=== PATIENT | female | born 1945 | race Hispanic/Latino ===

== ENCOUNTER 2016-07-27 09:12 | Day surgery (SDC) | payer MEDICARE ==
[2016-07-20 11:48] VITALS: BMI 22.4
[2016-07-27] MEDS ORDERED: Propofol 10 mg/ml Inj (20 ML) ONE (09:46)
[2016-07-27 09:58] LABS: HEMATOCRIT 43.3 % (36.0-48.0); MEAN CELL VOLUME 79.6 fL (80.0-105.0); MEAN CORPUSCULAR HEMOGLOBIN 25.9 pg (25.0-35.0); MEAN CORPUSCULAR HGB CONC 32.6 g/dl (31.0-37.0); PLATELET COUNT 210 10^3/uL (120.0-450.0); RED CELL DISTRIBUTION WIDTH 18.2 % (11.5-14.5); WHITE BLOOD COUNT 7.2 10^3/ul (4.5-11.0)
[2016-07-27 10:06] LABS: ALB/GLOB RATIO 1.5 (1.1-1.8); ALKALINE PHOSPHATASE 85 U/L (38-133); ALT/SGPT 26 U/L (7-56); AST/SGOT 29 U/L (15-39); BILIRUBIN,TOTAL 1.1 mg/dL (0.2-1.3); BLOOD UREA NITROGEN 16 mg/dL (7-21); CALCIUM 9.4 mg/dL (8.4-10.5); CARBON DIOXIDE 27 mmol/L (21-33); CHLORIDE 105 mmol/L (98-107); GFR AFRICAN-AMERICAN > 60; GLUCOSE,RANDOM 84 mg/dL (70-110); POTASSIUM 4.6 mmol/L (3.6-5.0); SODIUM 142 mmol/L (132-148); TOTAL PROTEIN 7.5 g/dL (5.8-8.3)
[2016-07-27 10:09] LABS: INR 0.95 (0.93-1.08); PARTIAL THROMBOPLASTIN TIME 24.6 Seconds (23.7-30.8)
[2016-07-27] MEDS ORDERED: Esmolol 100 mg/10ml Inj IV ONE (10:28)
[2016-07-27] MEDS ORDERED: Phenylephrine 10 mg/ml Inj ONE (10:32)
[2016-07-27] MEDS ORDERED: ePHEDrine 50 mg/ml Inj ONE ×2 (10:34→10:36)
[2016-07-27] MEDS ORDERED: Lactated Ringer's 1,000 ML IV SCH (11:26)
[2016-07-27 13:40] VITALS: BP 158/95; PULSE 84; RESP 22; TEMP 98; O2SAT 98
--- NOTE | 2016-07-28 08:06 | CON ---
DATE: 07/27/2016 The patient is in the PACU, recovery room. REASON FOR CONSULTATION: Run of atrial fibrillation with hypotension during endoscopy. HISTORY OF PRESENT ILLNESS: The patient is a 71-year-old female who has a known case of hypertension , high cholesterol, osteoporosis, hypothyroidism, asthma, COPD, CA of the tonsil, who previously had a history of SVT, atrial fibrillation, paroxysmal, which had become stable with medication and the pa tient's Eliquis has been stopped for more than 1 year. The patient came for endoscopy procedure and during the procedure, the patient developed atrial fibrillation with rapid rate with hypotension. Sh e responded to therapy. All the procedures were completed and the patient is now in sinus rhythm. T he patient had an outpatient Holter monitor on 05/06/2016, which showed sinus rhythm. The patient is n ow awake and alert and denies any chest pain, shortness of breath or palpitation. PAST MEDICAL HISTORY: Positive for appendectomy, cholecystectomy, hypertension, high cholesterol, os teoporosis, hypothyroidism, asthma, COPD, and recently the patient found to have cancer of the tonsil , for which she has been getting therapy. PERSONAL HISTORY: Used to smoke 2-3 packs a day, but stopped 16 years ago. No drinking. ALLERGIES: The patient denies any allergies. HOME MEDICATIONS: The patient was on Cardizem 240 once a day. Also the patient was getting DuoNeb h and nebulizer therapy, levothyroxine 50 mcg p.o. daily, Lipitor 40 mg p.o. daily, Protonix 40 daily m g daily, Spiriva 1 inhaler INH q.a.m. and Symbicort 2 inhaler INH q.a.m. REVIEW OF SYSTEMS: All the systems were reviewed; positives mentioned in the history, others were ne gative. PHYSICAL EXAMINATION: VITAL SIGNS: Blood pressure 120/80, respiration 18, the patient is afebrile, pulse is about 76 per m inute. HEENT: Head is normocephalic. Eyes: Pupils normal. Conjunctivae normal. Nose and throat normal. NECK: JVP low. Carotid equal. THORAX: AP diameter normal. LUNGS: Clear. CARDIOVASCULAR: S1, S2. ABDOMEN: Soft, nontender, no organomegaly. EXTREMITIES: No clubbing, no cyanosis. LABORATORY DATA: The patient did not have any labs or EKG. DIAGNOSES: On and off atrial fibrillation during the procedure with an episode of hypotension, hist ory of hypertension, high cholesterol, osteoporosis, hypothyroidism, asthma, chronic obstructive pulm onary disease, carcinoma of the tonsil, past history of supraventricular tachycardia and atrial fibri llation. PLAN: The patient clinically is now back to sinus rhythm and probably her was related to the p rocedure and anesthesia, so the patient will continue Diltiazem ER 240 mg once a day along with her o ther medication at home. She is going to follow in our office. We are going to repeat A Holter and monitor the patient and THE patient was told to start Ecotrin 81 mg daily, starting tomorrow and we w ill follow the patient closely. The patient also will be on Protonix 40 mg daily, levothyroxine 50 m cg daily and Lipitor 40 mg daily. She will have blood work including TSH and we will follow the kev ent. Stacia Smallwood MD cc: [id number] TT: 07/27/2016 20:03:48 Confirmation # [id number] Dictation # [id number] [email or web address]
== END 2016-07-27 13:32 | disposition home or self-care (01) ==
LOC: ENDO 09:12
PROVIDERS: ATTEND Internal Medicine
DX: K25.9 Gastric ulcer, unspecified as acute or chronic, without hemorrhage or perforation (principal); K44.9 Diaphragmatic hernia without obstruction or gangrene; K83.8 Other specified diseases of biliary tract; K86.89 Other specified diseases of pancreas; D12.3 Benign neoplasm of transverse colon; D12.5 Benign neoplasm of sigmoid colon; K64.8 Other hemorrhoids; K57.90 Diverticulosis of intestine, part unspecified, without perforation or abscess without bleeding; I48.91 Unspecified atrial fibrillation; I10 Essential (primary) hypertension; E78.00 Pure hypercholesterolemia, unspecified; E03.9 Hypothyroidism, unspecified; I95.9 Hypotension, unspecified; J44.9 Chronic obstructive pulmonary disease, unspecified; J45.909 Unspecified asthma, uncomplicated; M81.0 Age-related osteoporosis without current pathological fracture; C09.9 Malignant neoplasm of tonsil, unspecified; Z87.891 Personal history of nicotine dependence; K29.50 Unspecified chronic gastritis without bleeding; Y84.8 Other medical procedures as the cause of abnormal reaction of the patient, or of later complication, without mention of misadventure at the time of the procedure; D50.9 Iron deficiency anemia, unspecified; R68.81 Early satiety; K21.9 Gastro-esophageal reflux disease without esophagitis; Z90.49 Acquired absence of other specified parts of digestive tract
CPT/HCPCS: 36415; 43259; 45380; 80053; 85027; 85610; 85730; 88305; 88312; 88342; J2001; J2370; J2704; J3010; J7040; J7120

== ENCOUNTER 2017-04-10 13:44 | Observation (INO) | payer MEDICARE ==
--- NOTE | 2017-04-10 14:47 | ED PDOC ---
Arrival/HPI - General Chief Complaint: High Blood Pressure Time Seen by Provider: 04/10/17 14:36 Historian: Patient - History of Present Illness Narrative History of Present Illness (Text): 04/10/17 14:49 71 year old female, whose past medical history includes A-fib,hypertension, diabetes, CAD and arthritis, presents to the Emergency department complaining of high blood pressure, headache, and dizziness prior to arrival. Patient informs reading at home when the symptoms emerged, bringing her to the Emergency department. Patient informs having a mini-stroke two months ago. Patient denies any chest pain, abdominal pain, shortness of breath, unilateral weakness, fever, chills, nausea, vomiting, diarrhea or any other complaints. Time/Duration: Prior to Arrival Symptom Course: Unchanged Activities at Onset: Light Context: Home Past Medical History - Provider Review Nursing Documentation Reviewed: Yes - Infectious Disease Hx of Infectious Diseases: None - Cardiac Hx Hypertension: Yes Hx Pacemaker: No - Neurological HX Cerebrovascular Accident: Yes (01/2017) Hx Paralysis: No Hx Transient Ischemic Attacks (TIA): Yes - Endocrine/Metabolic Other/Comment: thyroid cancer 3 years with radiation treatment=remission - Hematological/Oncological Hx Blood Transfusions: No Hx Blood Transfusion Reaction: No - Musculoskeletal/Rheumatological Hx Musculoskeletal Disorders: Yes - Psychiatric Hx Emotional Abuse: No Hx Physical Abuse: No Hx Substance Use: No - Surgical History Hx Appendectomy: Yes Hx Cholecystectomy: Yes - Anesthesia Hx Anesthesia: Yes Hx Anesthesia Reactions: No Hx Malignant Hyperthermia: No - Suicidal Assessment Feels Threatened In Home Enviroment: No Family/Social History - Physician Review Nursing Documentation Reviewed: Yes Family/Social History: No Known Family HX Smoking Status: Former Smoker Hx Alcohol Use: No Hx Substance Use: No Allergies/Home Meds Allergies/Adverse Reactions: Allergies No Known Allergies Allergy (Verified 04/10/17 20:09) CONFIRMED WITH PT THAT SHE DOES NOT HAVE AN ALLERGY TO OMEPRAZOLE NOTED IN MD HX Home Medications: Home Meds Medication Instructions Recorded Confirmed Atorvastatin Calcium [Lipitor] 40 mg PO DIN 01/25/15 04/10/17 Sertraline HCl 50 mg PO HS PRN 07/20/16 04/10/17 Albuterol Sulfate [Proair Hfa] 2 puff INH DAILY 04/10/17 04/10/17 Apixaban [Eliquis] 5 mg PO DAILY 04/10/17 04/10/17 Aspirin [Adult Low Dose Aspirin EC] 1 tab PO DAILY 04/10/17 04/10/17 Cyanocobalamin (Vitamin B-12) 1,000 mcg PO DAILY 04/10/17 04/10/17 [Vitamin B-12] Levalbuterol Tartrate 1 puff INH DAILY 04/10/17 04/10/17 [Levalbuterol Tartrate Hfa] Levothyroxine [Synthroid] 75 mcg PO DAILY 04/10/17 04/10/17 Metoprolol Tartrate [Lopressor] 50 mg PO BID 04/10/17 04/10/17 Ranitidine HCl [Sunmark Acid 150 mg PO BID 04/10/17 04/10/17 Tipple Greaser] hydrALAZINE [hydralazine 25 mg PO TID 04/10/17 04/10/17 Hydrochloride] Review of Systems - Physician Review All systems were reviewed & negative as marked: Yes - Review of Systems Constitutional: Normal. absent: Fevers Eyes: Normal ENT: Normal Respiratory: Normal. absent: SOB Cardiovascular: Normal, Other (High Blood Pressure ). absent: Chest Pain Gastrointestinal: Normal. absent: Abdominal Pain, Diarrhea, Nausea, Vomiting Genitourinary Female: Normal Musculoskeletal: Normal Skin: Normal Neurological: Headache, Dizziness Endocrine: Normal Hemo/Lymphatic: Normal Psychiatric: Normal Physical Exam Vital Signs Reviewed: Yes Vital Signs Temp Pulse Resp BP Pulse Ox 04/10/17 19:46 98.2 F 88 16 142/83 97 04/10/17 18:46 98.2 F 93 H 18 160/76 H 96 04/10/17 18:01 98.2 F 84 18 138/68 96 04/10/17 17:16 98.2 F 71 18 112/67 98 04/10/17 17:01 98.2 F 74 18 137/75 98 04/10/17 16:58 98.2 F 75 19 128/87 99 04/10/17 16:16 98.2 F 95 H 19 126/74 99 04/10/17 16:13 98.2 F 81 19 116/69 99 04/10/17 15:44 119 H 144/99 H 04/10/17 13:49 98.2 F 112 H 19 133/101 H 98 Temperature: Afebrile Blood Pressure: Hypertensive Pulse: Tachycardic Respiratory Rate: Normal Appearance: Positive for: Well-Appearing, Non-Toxic, Comfortable Pain Distress: None Mental Status: Positive for: Alert and Oriented X 3 - Systems Exam Head: Present: Atraumatic, Normocephalic Pupils: Present: PERRL Extroacular Muscles: Present: EOMI Conjunctiva: Present: Normal Mouth: Present: Moist Mucous Membranes Neck: Present: Normal Range of Motion Respiratory/Chest: Present: Clear to Auscultation, Good Air Exchange. No: Respiratory Distress, Accessory Muscle Use Cardiovascular: Present: Normal S1, S2, Irregular Rhythm (Irregularly irregular rhythm), Tachycardic. No: Murmurs Abdomen: Present: Normal Bowel Sounds. No: Tenderness, Distention, Peritoneal Signs Back: Present: Normal Inspection Upper Extremity: Present: Normal Inspection. No: Cyanosis, Edema Lower Extremity: Present: Normal Inspection. No: Edema Neurological: Present: GCS=15, CN II-XII Intact, Speech Normal Skin: Present: Warm, Dry, Normal Color. No: Rashes Psychiatric: Present: Alert, Oriented x 3, Normal Insight, Normal Concentration Medical Decision Making ED Course and Treatment: 04/10/17 14:55 Impression: 71 year old female presents to the Emergency department for high blood pressure/dizziness/weakness- found to be in afib with rvr. on eliquis baseline Plan: -- CT of head -- EKG -- Labs -- Chest X-ray -- Cardizem -- Urinalysis -- Reassess and disposition Progress Notes: 04/10/17 15:32 Chest X-ray reviewed by radiologist, shows no active disease. 04/10/17 18:15 CT of head reviewed by radiologist, shows no acute intracranial findings. 04/10/17 21:51 rate controled s/p cardizem. disucssed with hospitalist. accpets for admission - Lab Interpretations Lab Results: 04/10/17 15:30 04/10/17 15:30 Lab Results 04/10/17 17:00: Urine Color Yellow, Urine Appearance Clear, Urine pH 6.5, Ur Specific [place] 1.010, Urine Protein Negative, Urine Glucose (UA) Negative, Urine Ketones Negative, Urine Blood Negative, Urine Nitrate Negative, Urine Bilirubin Negative, Urine Urobilinogen 0.2, Ur Leukocyte Esterase Negative 02/03/18 15:30: Sodium 141, Potassium 5.1 H, Chloride 104, Carbon Dioxide 29, Anion Gap 14, BUN 16, Creatinine 0.7, Est GFR ( Amer) > 60, Est GFR (Non- Af Amer) > 60, Random Glucose 102, Calcium 10.1, Magnesium 2.1, Total Bilirubin 0.5, AST 29, ALT 29, Alkaline Phosphatase 69, Lactate Dehydrogenase 615, Total Creatine Kinase 75, Troponin I < 0.01, Total Protein 6.8, Albumin 4.1, Globulin 2.8, Albumin/Globulin Ratio 1.5 04/10/17 15:30: PT 9.8, INR 0.86 L, APTT 29.6 04/10/17 15:30: WBC 7.2, RBC 5.09, Hgb 14.0, Hct 44.2, MCV 86.8, MCH 27.5, MCHC 31.7, RDW 15.5 H, Plt Count 233, MPV 11.5 H, Gran % 73.3 H, Lymph % (Auto) 16.3 L, [place] % (Auto) 8.3 H, Eos % (Auto) 1.7, Baso % (Auto) 0.4, Gran # 5.28, Lymph # (Auto) 1.2, [place] # (Auto) 0.6, Eos # (Auto) 0.1, Baso # (Auto) 0.03 - RAD Interpretation Radiology Orders: 04/10/17 14:51 CHEST PORTABLE [RAD] Stat 04/10/17 14:52 HEAD W/O CONTRAST [CT] Stat Can Cutter: Radiologist - Medication Orders Current Medication Orders: Apixaban (Eliquis) 5 mg PO DAILY [facility] PRN Reason: Protocol Aspirin (Ecotrin) 81 mg PO DAILY [facility] Atorvastatin Calcium (Lipitor) 40 mg PO DIN [facility] Cyanocobalamin (Vitamin B12 1000 Mcg Tab) 1,000 mcg PO DAILY [facility] Famotidine (Pepcid) 40 mg PO HS [facility] Last Admin: 04/10/17 21:04 Dose: 40 mg Hydralazine HCl (Apresoline) 25 mg PO TID [facility] Levothyroxine Sodium (Synthroid) 75 mcg PO DAILY [facility] Metoprolol Tartrate (Lopressor) 50 mg PO BID [facility] Last Admin: 04/10/17 21:04 Dose: 50 mg MAR Pulse and Blood Pressure Document 04/10/17 21:04 SGG (Rec: 04/10/17 21:04 SG [id number]) Pulse Pulse Rate (60-90) 82 Blood Pressure Blood Pressure (100/60-150/90) 132/83 Non-Formulary Medication (Levalbuterol Tartrate [Levalbuterol Tartrate Hfa]) 1 puff INH DAILY [facility]URDO Sertraline HCl (Zoloft) 50 mg PO HS PRN PRN Reason: Insomnia Discontinued Medications Diltiazem HCl (Cardizem) 15 mg IVP STAT STA Stop: 04/10/17 14:52 Last Admin: 04/10/17 15:44 Dose: 15 mg IVP Administration Document 04/10/17 15:44 OCS (Rec: 04/10/17 15:44 [facility] [id number]) Charges for Administration # of IVP Administrations 1 MAR Pulse and Blood Pressure Document 04/10/17 15:44 OCS (Rec: 04/10/17 15:44 OCS [facility] [id number]) Pulse Pulse Rate (60-90) 119 Blood Pressure Blood Pressure (100/60-150/90) 144/99 - Scribe Statement The provider has reviewed the documentation as recorded by the Scribe Camden Moreno. All medical record entries made by the Scribe were at my direction and personally dictated by me. I have reviewed the chart and agree that the record accurately reflects my personal performance of the history, physical exam, medical decision making, and the department course for this patient. I have also personally directed, reviewed, and agree with the discharge instructions and disposition. Disposition/Present on Arrival - Present on Arrival Any Indicators Present on Arrival: No History of DVT/PE: No History of Uncontrolled Diabetes: No Urinary Catheter: No History of Decub. Ulcer: No History Surgical Site Infection Following: None - Disposition Have Diagnosis and Disposition been Completed?: Yes Diagnosis: Atrial fibrillation with RVR Disposition: HOSPITALIZED Disposition Time: 08:00 Condition: STABLE
--- NOTE | 2017-04-10 15:31 | RAD ---
HISTORY: cp COMPARISON: 12/10/2014 FINDINGS: LUNGS: No active pulmonary disease. PLEURA: No significant pleural effusion identified, no pneumothorax apparent. CARDIOVASCULAR: Normal. OSSEOUS STRUCTURES: No significant abnormalities. VISUALIZED UPPER ABDOMEN: Normal. OTHER FINDINGS: None. IMPRESSION: No active disease.
[2017-04-10 15:54] LABS: BASO # 0.03 K/mm3 (0.0-2.0); BASO % 0.4 % (0.0-3.0); EOS # 0.1 (0.0-0.7); EOS % 1.7 % (1.5-5.0); GRAN # 5.28 (1.4-6.5); GRAN % 73.3 % (50.0-68.0); LYMPH # 1.2 (1.2-3.4); LYMPH % 16.3 % (22.0-35.0); MEAN CELL VOLUME 86.8 fl (80.0-105.0); MEAN CORPUSCULAR HEMOGLOBIN 27.5 pg (25.0-35.0); MEAN CORPUSCULAR HGB CONC 31.7 g/dl (31.0-37.0); MEAN PLATELET VOLUME 11.5 fl (7.0-11.0); MONO # 0.6 (0.1-0.6); MONO % 8.3 % (1.0-6.0); RBC 5.09 10^6/uL (3.5-6.1); RED CELL DISTRIBUTION WIDTH 15.5 % (11.5-14.5); WHITE BLOOD COUNT 7.2 10^3/ul (4.5-11.0)
[2017-04-10 16:08] LABS: INR 0.86 (0.93-1.08); PARTIAL THROMBOPLASTIN TIME 29.6 Seconds (25.1-36.5); PROTHROMBIN TIME 9.8 SECONDS (9.4-12.5)
[2017-04-10 16:20] LABS: ALB/GLOB RATIO 1.5 (1.1-1.8); ALBUMIN 4.1 g/dL (3.0-4.8); ALT/SGPT 29 U/L (7-56); AST/SGOT 29 U/L (14-36); BLOOD UREA NITROGEN 16 mg/dL (7-21); CALCIUM 10.1 mg/dL (8.4-10.5); GFR AFRICAN-AMERICAN > 60; GFR NON-AFRICAN AMERICAN > 60; MAGNESIUM 2.1 mg/dL (1.7-2.2); TROPONIN I < 0.01 ng/mL
--- NOTE | 2017-04-10 16:55 | CT ---
PROCEDURE: CT HEAD WITHOUT CONTRAST. HISTORY: velasquez on eliquis COMPARISON: None available. TECHNIQUE: Axial computed tomography images were obtained through the head/brain without intravenous contrast. Radiation dose: Total exam DLP = 882 mGy-cm. This CT exam was performed using one or more of the following dose reduction techniques: Automated exposure control, adjustment of the mA and/or kV according to patient size, and/or use of iterative reconstruction technique. FINDINGS: HEMORRHAGE: No intracranial hemorrhage. BRAIN: No mass effect or edema. No atrophy or chronic microvascular ischemic changes. VENTRICLES: Unremarkable. No hydrocephalus. CALVARIUM: Unremarkable. PARANASAL SINUSES: Unremarkable as visualized. No significant inflammatory changes. MASTOID AIR CELLS: Unremarkable as visualized. No inflammatory changes. OTHER FINDINGS: None. IMPRESSION: No acute intracranial findings
[2017-04-10 17:14] LABS: PH,URINE 6.5 (4.7-8.0); URINE BILIRUBIN NEGATIVE (NEGATIVE); URINE BLOOD NEGATIVE (NEGATIVE); URINE GLUCOSE (UA) NEGATIVE (NEGATIVE); URINE LEUKOCYTE ESTERASE NEGATIVE Leu/uL (NEGATIVE); URINE NITRATE NEGATIVE (NEGATIVE); URINE PROTEIN NEGATIVE mg/dL (<30 mg/dL); URINE UROBILINOGEN 0.2 E.U./dL (<1 E.U./dL)
[2017-04-10 17:19] LABS: URINE APPEARANCE CLEAR (CLEAR); URINE COLOR YELLOW (YELLOW)
--- NOTE | 2017-04-10 19:21 | CP.PCM.HP ---
History of Present Illness - History of Present Illness History of Present Illness: HPI: Patient is a 71F with PMH of A Fib, HTN, HLD, CAD, DM, left sided TIA (2 months ago), hypothyroidism, asthma, emphysema, throat CA treated in past with chemo/rad, hiatal hernia, and arthritis, who presents to the ED complaining of fluctuating high blood pressure, headache, and weakness that started earlier today. Patient said the symptoms came on gradually and she monitored her BP throughout the day noting SBPs up to the 140s. Patient says she started getting a generalized headache over the top of her head that felt like someone was "squeezing her head". Patient also admits to associated dizziness, palpitations , and SOB, however she says she gets SOB often due to her asthma and emphysema. She also admits to a strange sensation on the sides of her neck that she has difficulty describing. Patient denies diaphoresis, changes in vision and speech , chest pain, abdominal pain, nausea, vomiting, diarrhea, constipation, changes in urination, pain/numbness/tingling/loss of function in her extremities, and sick contacts. CHRISTIANO VASc score: 7 In ED patient was given cardizem 15 mg IV and HR improved to ~100 bpm. EKG showed --. Head CT showed no intracranial findings. PMD: Dr. Thomson Cardio: Dr. Smallwood PMH: A Fib, HTN, HLD, CAD, DM, left sided TIA (2 months ago), hypothyroidism, asthma, emphysema, throat CA treated in past with chemo/rad, hiatal hernia, and arthritis Meds: * Proair 2 puffs QD * Xopenex 1 puff QD * Vitamin B12 1000 mcg PO QD * ASA 81 mg PO QD * Hydralazine 25 mg PO TID * Ranitidine 150 mg PO BID * Lopressor 50 mg PO BID * Eliquis 5 mg PO QD * Lipitor 40 mg PO HS * Synthroid 75 mcg PO QD * Sertraline 50 mg PO HS Allergies: NKDA PSH: Cholecystectomy, Appendectomy, Bunion of Right foot FH: [place] (father) SH: former smoker (smoked 3PPD x 40 years, quit 18 years ago), denies alcohol and elicit drug use Present on Admission - Present on Admission Any Indicators Present on Admission: No Review of Systems - Review of Systems All systems: reviewed and no additional remarkable complaints except (as per HPI ) Past Patient History - Infectious Disease Hx of Infectious Diseases: None - Past Social History Smoking Status: Former Smoker - CARDIAC Hx Hypertension: Yes Hx Pacemaker: No - NEUROLOGICAL HX Cerebrovascular Accident: Yes (01/2017) Hx Paralysis: No Hx Transient Ischemic Attacks (TIA): Yes - ENDOCRINE/METABOLIC Other/Comment: thyroid cancer 3 years with radiation treatment=remission - HEMATOLOGICAL/ONCOLOGICAL Hx Blood Transfusions: No Hx Blood Transfusion Reaction: No - MUSCULOSKELETAL/RHEUMATOLOGICAL Hx Musculoskeletal Disorders: Yes - PSYCHIATRIC Hx Emotional Abuse: No Hx Physical Abuse: No Hx Substance Use: No - SURGICAL HISTORY Hx Appendectomy: Yes Hx Cholecystectomy: Yes - ANESTHESIA Hx Anesthesia: Yes Hx Anesthesia Reactions: No Hx Malignant Hyperthermia: No Meds Allergies/Adverse Reactions: Allergies Allergy/AdvReac Type Severity Reaction Status Date / Time No Known Allergies Allergy Verified 04/10/17 14:00 Physical Exam - Constitutional Appears: Non-toxic, No Acute Distress - Head Exam Head Exam: ATRAUMATIC, NORMAL INSPECTION, NORMOCEPHALIC - Eye Exam Eye Exam: EOMI, Normal appearance, PERRL - ENT Exam ENT Exam: Mucous Membranes Moist - Neck Exam Neck exam: Negative for: Lymphadenopathy, Thyromegaly - Respiratory Exam Respiratory Exam: Clear to Auscultation Bilateral, NORMAL BREATHING PATTERN. absent: Accessory Muscle Use, Rales, Rhonchi, Wheezes, Respiratory Distress - Cardiovascular Exam Cardiovascular Exam: Tachycardia, Irregular Rhythm, +S1, +S2. absent: Diastolic murmur, JVD, Systolic Murmur - GI/Abdominal Exam GI & Abdominal Exam: Normal Bowel Sounds, Soft. absent: Distended, Tenderness - Extremities Exam Extremities exam: Positive for: normal inspection. Negative for: calf tenderness, pedal edema - Back Exam Back exam: NORMAL INSPECTION - Neurological Exam Neurological exam: Alert, CN II-XII Intact, Oriented x3 - Psychiatric Exam Psychiatric exam: Normal Affect, Normal Mood - Skin Skin Exam: Dry, Intact, Normal Color, Warm Results - Vital Signs Recent Vital Signs: Last Vital Signs Temp 98.2 F 04/10/17 17:16 Pulse 71 04/10/17 17:16 Resp 18 04/10/17 17:16 BP 112/67 04/10/17 17:16 Pulse Ox 98 04/10/17 17:16 - Labs Result Diagrams: 04/10/17 15:30 04/10/17 15:30 Assessment & Plan - Assessment and Plan (Free Text) Assessment: 71F with PMH of A Fib, HTN, HLD, CAD, DM, left sided TIA (2 months ago), hypothyroidism, asthma, emphysema, throat CA treated in past with chemo/rad, hiatal hernia, and arthritis, who presents to the ED with weakness, HTN, and headache, found to have A Fib. Plan: Atrial Fibrillation * Cardiology Consult (Dr. West) * Trop negative x1 * F/u trend * CXR: NAD * CT head: no intracranial findings * Consider echo * Consider carotid doppler for complaints of sensation in neck * Continue ASA, lopressor, eliquis Hypertension * Continue hydralazine 25 mg PO TID Hyperlipidemia * Continue lipitor 40 mg PO HS Hyperkalemia * Mildly elevated at 5.1 * Will monitor with AM labs Emphysema * Continue Proair and Xopenex * PFTs * ABG Hypothyroidism * Continue synthroid 75 mcg PO QD * TSH * T4 * Free T4 Depression * Continue sertraline 50 mg PO HS Prophylaxis * DVT: Eliquis * GI: Pepcid
[2017-04-10 20:20] VITALS: O2SAT 97
[2017-04-10 21:47] VITALS: BMI 23.2
[2017-04-10] MEDS ORDERED: Influenza Vaccine 60 mcg/0.5 mL SYR (4YR UP) IM ONE (21:47)
[2017-04-10] MEDS ORDERED: Pneumococcal 23-Valent Vaccine IM ONE (21:47)
[2017-04-11 04:07] LABS: BASO # 0.03 K/mm3 (0.0-2.0); BASO % 0.6 % (0.0-3.0); EOS # 0.1 (0.0-0.7); EOS % 2.8 % (1.5-5.0); GRAN # 3.09 (1.4-6.5); GRAN % 66.5 % (50.0-68.0); HEMOGLOBIN 14.4 g/dL (12.0-16.0); LYMPH # 0.9 (1.2-3.4); MEAN CELL VOLUME 86.9 fl (80.0-105.0); MEAN CORPUSCULAR HEMOGLOBIN 27.3 pg (25.0-35.0); MEAN CORPUSCULAR HGB CONC 31.4 g/dl (31.0-37.0); MEAN PLATELET VOLUME 11.2 fl (7.0-11.0); MONO # 0.5 (0.1-0.6); MONO % 10.1 % (1.0-6.0); RBC 5.27 10^6/uL (3.5-6.1); RED CELL DISTRIBUTION WIDTH 15.6 % (11.5-14.5); WHITE BLOOD COUNT 4.7 10^3/ul (4.5-11.0)
[2017-04-11 04:25] LABS: ALB/GLOB RATIO 1.4 (1.1-1.8); ALBUMIN 3.8 g/dL (3.0-4.8); ALT/SGPT 28 U/L (7-56); AST/SGOT 25 U/L (14-36); BLOOD UREA NITROGEN 12 mg/dL (7-21); CALCIUM 9.6 mg/dL (8.4-10.5); GFR AFRICAN-AMERICAN > 60; GFR NON-AFRICAN AMERICAN > 60
[2017-04-11 04:36] LABS: TROPONIN I < 0.01 ng/mL
[2017-04-11 04:53] LABS: FREE T4 0.88 ng/dL (0.78-2.19); T4 9.6 ug/dL (5.5-11.0)
[2017-04-11] MEDS ORDERED: Levothyroxine 75 MCG TAB PO SCH (10:00)
[2017-04-11] MEDS ORDERED: LEVALBUTEROL TARTRATE INH SCH (10:00)
[2017-04-11] MEDS ORDERED: Albuterol 0.5% Inhal Sol (2.5 mg/0.5 ml) UD IH SCH (10:00)
--- NOTE | 2017-04-11 11:56 | CARD ---
APPROVED REPORT EKG Measurement Heart [id number] <Conclusion> Atrial fibrillation with rapid ventricular response Abnormal ECG
[2017-04-11 12:00] VITALS: BP 120/70; PULSE 68
--- NOTE | 2017-04-11 12:54 | CP.PCM.DIS ---
<Milady Acosta - Last Filed: 04/11/17 12:41> Provider - Provider Date of Admission: 04/10/17 17:55 Attending physician: Cintia Rosen MD Primary care physician: Zari Thomson MD Consults: Dr. Smallwood Time Spent in preparation of Discharge (in minutes): 35 Hospital Course - Lab Results Lab Results: Most Recent Lab Values WBC 4.7 10^3/ul (4.5-11.0) D 04/11/17 04:00 RBC 5.27 10^6/uL (3.5-6.1) 04/11/17 04:00 Hgb 14.4 g/dL (12.0-16.0) 04/11/17 04:00 Hct 45.8 % (36.0-48.0) 04/11/17 04:00 MCV 86.9 fl (80.0-105.0) 04/11/17 04:00 MCH 27.3 pg (25.0-35.0) 04/11/17 04:00 MCHC 31.4 g/dl (31.0-37.0) 04/11/17 04:00 RDW 15.6 % (11.5-14.5) H 04/11/17 04:00 Plt Count 229 10^3/uL (120.0-450.0) 04/11/17 04:00 MPV 11.2 fl (7.0-11.0) H 04/11/17 04:00 Gran % 66.5 % (50.0-68.0) 04/11/17 04:00 Lymph % (Auto) 20.0 % (22.0-35.0) L 04/11/17 04:00 [place] % (Auto) 10.1 % (1.0-6.0) H 04/11/17 04:00 Eos % (Auto) 2.8 % (1.5-5.0) 04/11/17 04:00 Baso % (Auto) 0.6 % (0.0-3.0) 04/11/17 04:00 Gran # 3.09 (1.4-6.5) 04/11/17 04:00 Lymph # (Auto) 0.9 (1.2-3.4) L 04/11/17 04:00 [place] # (Auto) 0.5 (0.1-0.6) 04/11/17 04:00 Eos # (Auto) 0.1 (0.0-0.7) 04/11/17 04:00 Baso # (Auto) 0.03 K/mm3 (0.0-2.0) 04/11/17 04:00 PT 9.8 SECONDS (9.4-12.5) 04/10/17 15:30 INR 0.86 (0.93-1.08) L 04/10/17 15:30 APTT 29.6 Seconds (25.1-36.5) 04/10/17 15:30 Sodium 143 mmol/L (132-148) 04/11/17 04:00 Potassium 4.2 mmol/L (3.6-5.0) 04/11/17 04:00 Chloride 104 mmol/L (98-107) 04/11/17 04:00 Carbon Dioxide 30 mmol/L (21-33) 04/11/17 04:00 Anion Gap 13 (10-20) 04/11/17 04:00 BUN 12 mg/dL (7-21) 04/11/17 04:00 Creatinine 0.7 mg/dl (0.7-1.2) 04/11/17 04:00 Est GFR ( Amer) > 60 04/11/17 04:00 Est GFR (Non-Af Amer) > 60 04/11/17 04:00 Random Glucose 97 mg/dL (70-110) 04/11/17 04:00 Calcium 9.6 mg/dL (8.4-10.5) 04/11/17 04:00 Magnesium 2.0 mg/dL (1.7-2.2) 04/11/17 04:00 Total Bilirubin 0.7 mg/dL (0.2-1.3) 04/11/17 04:00 AST 25 U/L (14-36) 04/11/17 04:00 ALT 28 U/L (7-56) 04/11/17 04:00 Alkaline Phosphatase 67 U/L (38-126) 04/11/17 04:00 Lactate Dehydrogenase 615 U/L (333-699) 04/10/17 15:30 Total Creatine Kinase 75 U/L (35-230) 04/10/17 15:30 Troponin I < 0.01 ng/mL 04/11/17 04:00 Total Protein 6.5 g/dL (5.8-8.3) 04/11/17 04:00 Albumin 3.8 g/dL (3.0-4.8) 04/11/17 04:00 Globulin 2.7 gm/dL 04/11/17 04:00 Albumin/Globulin Ratio 1.4 (1.1-1.8) 04/11/17 04:00 Free T4 0.88 ng/dL (0.78-2.19) 04/11/17 04:00 Thyroxine (T4) 9.6 ug/dL (5.5-11.0) 04/11/17 04:00 TSH 3rd Generation 19.00 mIU/mL (0.46-4.68) H 04/11/17 04:00 Urine Color Yellow (YELLOW) 04/10/17 17:00 Urine Appearance Clear (CLEAR) 04/10/17 17:00 Urine pH 6.5 (4.7-8.0) 04/10/17 17:00 Ur Specific [place] 1.010 (1.005-1.035) 04/10/17 17:00 Urine Protein Negative mg/dL (<30 mg/dL) 04/10/17 17:00 Urine Glucose (UA) Negative mg/dL (NEGATIVE) 04/10/17 17:00 Urine Ketones Negative mg/dL (NEGATIVE) 04/10/17 17:00 Urine Blood Negative (NEGATIVE) 04/10/17 17:00 Urine Nitrate Negative (NEGATIVE) 04/10/17 17:00 Urine Bilirubin Negative (NEGATIVE) 04/10/17 17:00 Urine Urobilinogen 0.2 E.U./dL (<1 E.U./dL) 04/10/17 17:00 Ur Leukocyte Esterase Negative Shayan/uL (NEGATIVE) 04/10/17 17:00 - Hospital Course Hospital Course: Upon admission: Patient is a 71F with PMH of A Fib, HTN, HLD, CAD, DM, left sided TIA (2 months ago), hypothyroidism, asthma, emphysema, throat CA treated in past with chemo/ rad, hiatal hernia, and arthritis, who presents to the ED complaining of fluctuating high blood pressure, headache, and weakness that started earlier today. Patient said the symptoms came on gradually and she monitored her BP throughout the day noting SBPs up to the 140s. Patient says she started getting a generalized headache over the top of her head that felt like someone was "squeezing her head". Patient also admits to associated dizziness, palpitations , and SOB, however she says she gets SOB often due to her asthma and emphysema. She also admits to a strange sensation on the sides of her neck that she has difficulty describing. Patient denies diaphoresis, changes in vision and speech , chest pain, abdominal pain, nausea, vomiting, diarrhea, constipation, changes in urination, pain/numbness/tingling/loss of function in her extremities, and sick contacts. CHRISTIANO VASc score: 7 In ED patient was given cardizem 15 mg IV and HR improved to ~100 bpm. EKG showed --. Head CT showed no intracranial findings. Hospital course: Patient was admitted for AFib. Cardiology Consulted (Dr. West, covered by Dr. Mack). Troponins ordered and negative x3. CXR showed no acute disease and CT head showed no intracranial findings. Patient was continued on home meds (ASA, lopressor, eliquis). Patient was also started on diltiazem 120 mg PO daily. Hydralazine 25 mg PO TID was continued for patient's HTN but we instructed her to stop after discharge since it could be worsening her AFib. Patient's synthroid was increase to 125 mcg to better control her hypothyroidism since TSH was elevated to 19. Lipitor 40 mg PO HS was continued for patient's HLD. Proair and Xopenex were continued for emphysema. Sertraline 50 mg PO HS was continued for patient's history of depression. Upon discharge: Patient was discharged with the following instructions: Please fill and take the follow prescriptions: Cardizem 120 mg by mouth daily Levothyroxine 125 mcg by mouth daily (increased dose of home medication) Please discontinue the following medications: Hydralazine 25 mg 3x daily Please note that this is a summary of events. For more details, please see complete medical record. Discharge Exam - Head Exam Head Exam: ATRAUMATIC, NORMAL INSPECTION, NORMOCEPHALIC - Eye Exam Eye Exam: EOMI, Normal appearance, PERRL - ENT Exam ENT Exam: Mucous Membranes Moist - Respiratory Exam Respiratory Exam: Clear to PA & Lateral, NORMAL BREATHING PATTERN, UNREMARKABLE - Cardiovascular Exam Cardiovascular Exam: RRR, +S1, +S2 - GI/Abdominal Exam GI & Abdominal Exam: Normal Bowel Sounds, Unremarkable - Neurological Exam Neurological exam: Alert, Oriented x3 - Psychiatric Exam Psychiatric exam: Normal Affect, Normal Mood - Skin Skin Exam: Dry, Intact, Normal Color, Warm Discharge Plan - Discharge Medications Prescriptions: diltiaZEM CD [Cardizem CD] 120 mg PO DAILY #30 cap Levothyroxine [Synthroid] 125 mcg PO 0600 #30 tab - Follow Up Plan Condition: STABLE Disposition: HOME/ ROUTINE Additional Instructions: Please follow up with your PCP and crossing tender within one week of discharge. Please fill and take the follow prescriptions: Cardizem 120 mg by mouth daily Levothyroxine 125 mcg by mouth daily (increased dose of home medication) Please discontinue the following medications: Hydralazine 25 mg 3x daily Referrals: Zari Valenzuela MD [Primary Care Provider] - Stacia Smallwood MD [Staff Provider] - <Cintia Rosen - Last Filed: 04/11/17 13:16> Provider - Provider Date of Admission: 04/10/17 17:55 Attending physician: Cintia Rosen MD Primary care physician: Zari Thomson MD Hospital Course - Lab Results Lab Results: Most Recent Lab Values WBC 4.7 10^3/ul (4.5-11.0) D 04/11/17 04:00 RBC 5.27 10^6/uL (3.5-6.1) 04/11/17 04:00 Hgb 14.4 g/dL (12.0-16.0) 04/11/17 04:00 Hct 45.8 % (36.0-48.0) 04/11/17 04:00 MCV 86.9 fl (80.0-105.0) 04/11/17 04:00 MCH 27.3 pg (25.0-35.0) 04/11/17 04:00 MCHC 31.4 g/dl (31.0-37.0) 04/11/17 04:00 RDW 15.6 % (11.5-14.5) H 04/11/17 04:00 Plt Count 229 10^3/uL (120.0-450.0) 04/11/17 04:00 MPV 11.2 fl (7.0-11.0) H 04/11/17 04:00 Gran % 66.5 % (50.0-68.0) 04/11/17 04:00 Lymph % (Auto) 20.0 % (22.0-35.0) L 04/11/17 04:00 [place] % (Auto) 10.1 % (1.0-6.0) H 04/11/17 04:00 Eos % (Auto) 2.8 % (1.5-5.0) 04/11/17 04:00 Baso % (Auto) 0.6 % (0.0-3.0) 04/11/17 04:00 Gran # 3.09 (1.4-6.5) 04/11/17 04:00 Lymph # (Auto) 0.9 (1.2-3.4) L 04/11/17 04:00 [place] # (Auto) 0.5 (0.1-0.6) 04/11/17 04:00 Eos # (Auto) 0.1 (0.0-0.7) 04/11/17 04:00 Baso # (Auto) 0.03 K/mm3 (0.0-2.0) 04/11/17 04:00 PT 9.8 SECONDS (9.4-12.5) 04/10/17 15:30 INR 0.86 (0.93-1.08) L 04/10/17 15:30 APTT 29.6 Seconds (25.1-36.5) 04/10/17 15:30 Sodium 143 mmol/L (132-148) 04/11/17 04:00 Potassium 4.2 mmol/L (3.6-5.0) 04/11/17 04:00 Chloride 104 mmol/L (98-107) 04/11/17 04:00 Carbon Dioxide 30 mmol/L (21-33) 04/11/17 04:00 Anion Gap 13 (10-20) 04/11/17 04:00 BUN 12 mg/dL (7-21) 04/11/17 04:00 Creatinine 0.7 mg/dl (0.7-1.2) 04/11/17 04:00 Est GFR ( Amer) > 60 04/11/17 04:00 Est GFR (Non-Af Amer) > 60 04/11/17 04:00 Random Glucose 97 mg/dL (70-110) 04/11/17 04:00 Calcium 9.6 mg/dL (8.4-10.5) 04/11/17 04:00 Magnesium 2.0 mg/dL (1.7-2.2) 04/11/17 04:00 Total Bilirubin 0.7 mg/dL (0.2-1.3) 04/11/17 04:00 AST 25 U/L (14-36) 04/11/17 04:00 ALT 28 U/L (7-56) 04/11/17 04:00 Alkaline Phosphatase 67 U/L (38-126) 04/11/17 04:00 Lactate Dehydrogenase 615 U/L (333-699) 04/10/17 15:30 Total Creatine Kinase 75 U/L (35-230) 04/10/17 15:30 Troponin I < 0.01 ng/mL 04/11/17 04:00 Total Protein 6.5 g/dL (5.8-8.3) 04/11/17 04:00 Albumin 3.8 g/dL (3.0-4.8) 04/11/17 04:00 Globulin 2.7 gm/dL 04/11/17 04:00 Albumin/Globulin Ratio 1.4 (1.1-1.8) 04/11/17 04:00 Free T4 0.88 ng/dL (0.78-2.19) 04/11/17 04:00 Thyroxine (T4) 9.6 ug/dL (5.5-11.0) 04/11/17 04:00 TSH 3rd Generation 19.00 mIU/mL (0.46-4.68) H 04/11/17 04:00 Urine Color Yellow (YELLOW) 04/10/17 17:00 Urine Appearance Clear (CLEAR) 04/10/17 17:00 Urine pH 6.5 (4.7-8.0) 04/10/17 17:00 Ur Specific [place] 1.010 (1.005-1.035) 04/10/17 17:00 Urine Protein Negative mg/dL (<30 mg/dL) 04/10/17 17:00 Urine Glucose (UA) Negative mg/dL (NEGATIVE) 04/10/17 17:00 Urine Ketones Negative mg/dL (NEGATIVE) 04/10/17 17:00 Urine Blood Negative (NEGATIVE) 04/10/17 17:00 Urine Nitrate Negative (NEGATIVE) 04/10/17 17:00 Urine Bilirubin Negative (NEGATIVE) 04/10/17 17:00 Urine Urobilinogen 0.2 E.U./dL (<1 E.U./dL) 04/10/17 17:00 Ur Leukocyte Esterase Negative Shayan/uL (NEGATIVE) 04/10/17 17:00 Attending/Attestation - Attestation I have personally seen and examined this patient.: Yes I have fully participated in the care of the patient.: Yes I have reviewed all pertinent clinical information, including history, physical exam and plan: Yes Notes (Text): 04/11/17 13:11 71 year old female with past medical history of atrial fibrillation and hypothyroidism who presented with complaint of palpitations. She was admitted with afib with rvr. She was seen by cardiology and her medications were adjusted. She was started on cardizem cd and discontinued hydralazine. Her TSH was elevated and her synthroid dose was increased. Overall her symptoms improved. She is discharged home to follow up her pmd and crossing tender. Recommended to repeat TFTs in 4-6 weeks. Cintia Rosen MD Hospitalist.
[2017-04-11 12:56] VITALS: RESP 18; TEMP 98
[2017-04-12] MEDS ORDERED: Levothyroxine 125 MCG TAB PO SCH (06:00)
--- NOTE | 2017-04-12 08:45 | CON ---
DATE: 04/11/2017 REASON FOR CONSULTATION: AFib with rapid ventricular rate. BRIEF CLINICAL HISTORY: This is a 71-year-old female with past medical history significant for hypertension, hyperlipidemia, coronary artery disease, diabetes, TIA, hypothyroidism, asthma, emphysema, throat cancer - treated in past with chemo and radiation, hiatal hernia, came in with heart rate found up and down with blood pressure, admitted to the emergency room, found to be in AFib with rapid ventricular rate. The patient has a history of chronic atrial fibrillation, now rate is well controlled. Denies any chest pain, shortness of breath or any palpitation, wanted to go home. REVIEW OF SYSTEMS: As per HPI. PAST MEDICAL HISTORY: Significant for chronic atrial fibrillation, hypertension, hyperlipidemia, diabetes, history of TIA, CVA, history of throat cancer - treated with radiation and chemo, history of asthma, history of hypothyroidism, history of COPD, history of arthritis. CURRENT MEDICATIONS: The patient is taking ProAir, Xopenex, B12, aspirin, hydralazine, loratadine, Lopressor, Eliquis, Lipitor, Synthroid, as well as sertraline 50 mg daily. ALLERGIES: NO KNOWN DRUG ALLERGY. PAST SURGICAL HISTORY: Significant for cholecystectomy, appendectomy, bunion of the right foot removed. PAST FAMILY HISTORY: Significant for coronary artery disease. Father with LA. PHYSICAL EXAMINATION: VITAL SIGNS: Temperature afebrile, heart rate 60, blood pressure 120/70. HEENT: PERRLA. Extraocular muscles intact. NECK: Supple. No carotid bruits. No thyromegaly. CHEST: Clear to auscultation. HEART: S1 and S2, regular. ABDOMEN: Soft. EXTREMITIES: Clubbing and cyanosis negative. LABORATORY DATA: Blood work up as follows, WBC 4.3, hemoglobin 14.4, hematocrit of 45.8, and platelet count of 229. Chemistry showed sodium 140, potassium 4.2, chloride 104, carbon dioxide 30, anion gap of 13, BUN 12, creatinine 0.7. TSH 19. IMPRESSION AND PLAN: Severe hypothyroidism; the patient was maintained on 75 mcg, but TSH is severely elevated. Atrial fibrillation, chronic, with rapid ventricular rate; and at this time admitted with rapid ventricular rate. Troponin was negative. No evidence of acute myocardial infarction. History of throat cancer, history of hypertension, hyperlipidemia, and diabetes. The patient had stress test done that was essentially negative, being followed by Dr. Smallwood's recommendation. The patient is on hydralazine. We will change the medication. We will start Cardizem CD 120 mg daily, and we will give 60 mg of Cardizem as a stat dose now. Continue Eliquis 5 mg twice. Continue metoprolol 50 b.i.d. Increase levothyroxine from 75 to 125, because of TSH of 19 - severely hypothyroid. Follow with Dr. Smallwood and have an echo and a stress test as outpatient. Discussed with resident. We will follow with you. Thank you, Dr. Rosen, for providing us the opportunity in taking care of . Stacia Mack MD
[2017-04-12] MEDS ORDERED: diltiaZEM 120 mg/24 Hours CD Cap PO SCH (10:00)
--- NOTE | 2017-04-12 14:44 | CARD ---
APPROVED REPORT EKG Measurement Heart [id number] <Conclusion> Normal sinus rhythm Possible Inferior infarct, age undetermined Abnormal ECG
== END 2017-04-11 14:29 | disposition home or self-care (01) ==
LOC: ED 13:44 → ERH 17:55 → 3RSO 19:56
PROVIDERS: ADMIT Hospitalist; ATTEND Internal Medicine
DX: I48.2 Chronic atrial fibrillation (principal); I10 Essential (primary) hypertension; E89.0 Postprocedural hypothyroidism; I25.10 Atherosclerotic heart disease of native coronary artery without angina pectoris; E11.9 Type 2 diabetes mellitus without complications; E87.5 Hyperkalemia; F32.9 Major depressive disorder, single episode, unspecified; M19.90 Unspecified osteoarthritis, unspecified site; J43.9 Emphysema, unspecified; E78.5 Hyperlipidemia, unspecified; Z79.01 Long term (current) use of anticoagulants; Z79.82 Long term (current) use of aspirin; Z87.891 Personal history of nicotine dependence; Z86.73 Personal history of transient ischemic attack (TIA), and cerebral infarction without residual deficits; Z85.850 Personal history of malignant neoplasm of thyroid
CPT/HCPCS: 36415; 70450; 71045; 80053; 81003; 82550; 83615; 83735; 84439; 84443; 84484; 85025; 85610; 85730; 93005; 96374; 99285; G0378

== ENCOUNTER 2018-03-10 09:46 | Inpatient (IN) | payer MEDICARE ==
[2018-03-10] MEDS ORDERED: Albuterol-Ipratrop 3 mg / 0.5 (3 ml) UD ONE (10:00)
[2018-03-10] MEDS ORDERED: Albuterol-Ipratrop 3 mg / 0.5 (3 ml) UD IH STA (10:16)
--- NOTE | 2018-03-10 10:27 | ED PDOC ---
Arrival/HPI <Iglesia Cohen - Last Filed: 03/10/18 11:20> - General Historian: Patient - History of Present Illness Narrative History of Present Illness (Text): 03/10/18 10:18 72F with past medical history of Emphysema and AFib presents to the Emergency department with a 1 day hx of shortness of breath and dizziness. Symptoms began last night, pt treid using her home symbicort pump and nbulizer but got no relief. Symptoms worsen with any light activity. Pt reports this is the worst exacerbation she's had, however says its now improving with the STAT duonebs. She has never been intubated in the past. Pt Denies CP, fevers, chills, nausea, vomiting, LOC, sick contacts, recent illness Time/Duration: 24 hours Symptom Onset: Gradual Symptom Course: Improving Activities at Onset: Rest Context: Home <Doe Eric - Last Filed: 03/10/18 12:15> - General Chief Complaint: Shortness Of Breath Time Seen by Provider: 03/10/18 10:02 Past Medical History - Provider Review Nursing Documentation Reviewed: Yes - Infectious Disease Hx of Infectious Diseases: None - Cardiac Hx Cardiac Disorders: Yes Hx Hypertension: Yes - Pulmonary Hx Respiratory Disorders: Yes (smoked ppd x 40 yrs. quit.) Hx Asthma: Yes Hx Emphysema: Yes - Neurological HX Cerebrovascular Accident: Yes (01/2017) Hx Transient Ischemic Attacks (TIA): Yes - HEENT Hx HEENT Disorder: No - Renal Hx Renal Disorder: No - Endocrine/Metabolic Other/Comment: thyroid cancer 3 years with radiation treatment=remission - Hematological/Oncological Hx Blood Disorders: No - Integumentary Hx Dermatological Disorder: No - Musculoskeletal/Rheumatological Hx Musculoskeletal Disorders: Yes - Gastrointestinal Hx Gastrointestinal Disorders: Yes (HIATAL HERNIA,APPENDECTOMY) Hx Gall Bladder Disease: Yes (CHOLEYCSTECTOMY) - Genitourinary/Gynecological Hx Genitourinary Disorders: No - Psychiatric Hx Psychophysiologic Disorder: No Hx Substance Use: No - Surgical History Hx Appendectomy: Yes Hx Cholecystectomy: Yes - Anesthesia Hx Anesthesia: Yes Hx Anesthesia Reactions: No Hx Malignant Hyperthermia: No - Suicidal Assessment Feels Threatened In Home Enviroment: No <Doe Eric - Last Filed: 03/10/18 12:15> Family/Social History - Physician Review Nursing Documentation Reviewed: Yes Family/Social History: Unknown Family HX Smoking Status: Former Smoker Hx Alcohol Use: No Hx Substance Use: No <Doe Eric - Last Filed: 03/10/18 12:15> Allergies/Home Meds <Iglesia Cohen - Last Filed: 03/10/18 11:20> <Doe Eric - Last Filed: 03/10/18 12:15> Allergies/Adverse Reactions: Allergies No Known Allergies Allergy (Verified 04/10/17 20:09) CONFIRMED WITH PT THAT SHE DOES NOT HAVE AN ALLERGY TO OMEPRAZOLE NOTED IN MD ELVI Home Medications: Home Meds Medication Instructions Recorded Confirmed Atorvastatin Calcium [Lipitor] 40 mg PO DIN 01/25/15 03/10/18 Sertraline HCl 50 mg PO HS PRN 07/20/16 03/10/18 Apixaban [Eliquis] 5 mg PO DAILY 04/10/17 03/10/18 Aspirin [Adult Low Dose Aspirin EC] 1 tab PO DAILY 04/10/17 03/10/18 Cyanocobalamin (Vitamin B-12) 1,000 mcg PO DAILY 04/10/17 03/10/18 [Vitamin B-12] Levalbuterol Tartrate 1 puff INH DAILY 04/10/17 03/10/18 [Levalbuterol Tartrate Hfa] Metoprolol Tartrate [Lopressor] 50 mg PO BID 04/10/17 03/10/18 Ranitidine HCl [Acid Car Rider] 150 mg PO BID 04/10/17 03/10/18 Budesonide/Formoterol Fumarate 10.2 % IH PRN PRN 03/10/18 03/10/18 [Symbicort 160-4.5 Mcg Inhaler] Calcium Carbonate [Calcium] 600 mg PO DAILY 03/10/18 03/10/18 Cholecalciferol (Vitamin D3) 2,000 units PO DAILY 03/10/18 03/10/18 [Vitamin D3] Fish Oil/Dha/Epa [Fish Oil 1,200 1,200 mg PO DAILY 03/10/18 03/10/18 mg Fish Oil] Review of Systems - Physician Review All systems were reviewed & negative as marked: Yes - Review of Systems Constitutional: absent: Fevers, Night Sweats Eyes: absent: Vision Changes ENT: absent: Hearing Changes Respiratory: SOB, Cough, Wheezing. absent: Sputum Cardiovascular: absent: Chest Pain, Syncope Gastrointestinal: absent: Nausea, Vomiting, Hematemesis Genitourinary Female: absent: Dysuria Musculoskeletal: absent: Arthralgias, Myalgias Neurological: Dizziness. absent: Headache Endocrine: absent: Diaphoresis <Doe Eric - Last Filed: 03/10/18 12:15> Physical Exam Vital Signs Pulse Resp BP Pulse Ox 03/10/18 10:05 22 95 03/10/18 09:47 116 H 22 169/104 H 95 <Iglesia Cohen - Last Filed: 03/10/18 11:20> Vital Signs Reviewed: Yes Vital Signs Pulse Resp BP Pulse Ox 03/10/18 10:05 22 95 03/10/18 09:47 116 H 22 169/104 H 95 Temperature: Afebrile Blood Pressure: Hypertensive Pulse: Tachycardic Respiratory Rate: Tachypneic Appearance: Positive for: Uncomfortable Pain Distress: Moderate Mental Status: Positive for: Alert and Oriented X 3 - Systems Exam Head: Present: Atraumatic, Normocephalic Pupils: Present: PERRL Extroacular Muscles: Present: EOMI Conjunctiva: Present: Normal Mouth: Present: Moist Mucous Membranes Pharnyx: No: ERYTHEMA Neck: Present: Normal Range of Motion Respiratory/Chest: Present: Wheezes (bilateral upper and lower logan). No: Rales, Rhonchi Cardiovascular: Present: Irregular Rhythm, Tachycardic Abdomen: No: Tenderness, Distention Upper Extremity: Present: NORMAL PULSES, Capillary Refill < 2s. No: Cyanosis (no clubbing) Lower Extremity: Present: NORMAL PULSES Neurological: Present: CN II-XII Intact, Speech Normal Skin: Present: Normal Color Psychiatric: Present: Alert, Oriented x 3 <Doe Eric - Last Filed: 03/10/18 12:15> Medical Decision Making ED Course and Treatment: 03/10/18 11:17 Impression: 72 year old female presents to emergency department complaining of shortness of breath. In agreement with resident note which contains more details about the patient. Patient seen and evaluated with resident. Came up with plan and treatment together. Plan: -- EKG -- Labs -- Chest X-ray -- Duoneb -- Solu-Medrol - Lab Interpretations Lab Results: 03/10/18 10:24 03/10/18 10:24 Lab Results 03/10/18 10:24: Sodium 140, Potassium 4.5, Chloride 105, Carbon Dioxide 30, Anion Gap 10, BUN 18, Creatinine 0.5 L, Est GFR ( Amer) > 60, Est GFR (No n-Af Amer) > 60, Random Glucose 183 H, Calcium 9.1, Phosphorus 3.5, Magnesium 1.6 L, Total Bilirubin 1.0, AST 328 H D, ALT 281 H, Alkaline Phosphatase 240 H D , Total Protein 6.8, Albumin 4.0, Globulin 2.8, Albumin/Globulin Ratio 1.4 03/10/18 10:24: WBC 10.9, RBC 4.88, Hgb 12.6, Hct 41.1, MCV 84.2, MCH 25.8, MCHC 30.7 L, RDW 18.8 H, Plt Count 250, MPV 11.4 H, Gran % 88.6 H, Lymph % (Auto) 5.8 L, [place] % (Auto) 5.3, Eos % (Auto) 0.1 L, Baso % (Auto) 0.2, Gran # 9.66 H, Lymph # (Auto) 0.6 L, [place] # (Auto) 0.6, Eos # (Auto) 0.0, Baso # (Auto) 0.02 - RAD Interpretation Radiology Orders: 03/10/18 10:16 CHEST PORTABLE [RAD] Stat - Medication Orders Current Medication Orders: Discontinued Medications Albuterol/Ipratropium (Duoneb 3 Mg/0.5 Mg (3 Ml) Ud) 3 ml IH STAT STA Stop: 03/10/18 10:17 Last Admin: 03/10/18 10:26 Dose: Not Given Non-Admin Reason: already given Albuterol/Ipratropium (Duoneb 3 Mg/0.5 Mg (3 Ml) Ud) 3 ml IH Q15M ZURDO Stop: 03/10/18 11:01 Last Admin: 03/10/18 10:58 Dose: 3 ml Methylprednisolone (Solu-Medrol) 125 mg IVP STAT STA Stop: 03/10/18 10:17 Last Admin: 03/10/18 10:31 Dose: 125 mg IVP Administration Document 03/10/18 10:31 BB (Rec: 03/10/18 10:34 BB [id number]) Charges for Administration # of IVP Administrations 1 <Iglesia Cohen - Last Filed: 03/10/18 11:20> ED Course and Treatment: 03/10/18 10:34 #COPD Exacerbation -f/u CBC CMP Chest X-ray, EKG -Duonebs q15 x3 -Solumedrol 125 IVP -ReAssess in 1 hr - RAD Interpretation Radiology Orders: 03/10/18 10:16 CHEST PORTABLE [RAD] Stat - EKG Interpretation Interpreted by ED Physician: Yes Type: 12 lead EKG (afib rate 117) <Doe Eric - Last Filed: 03/10/18 12:15> - PA / FAMILY LAW PARALEGAL / Resident Statement MD/DO has reviewed & agrees with the documentation as recorded. MD/DO has examined the patient and agrees with the treatment plan. - Scribe Statement The provider has reviewed the documentation as recorded by the Tavaresibe Fannie balderas with [facility] All medical record entries made by the Tavaresibsaran were at my direction and personally dictated by me. I have reviewed the chart and agree that the record accurately reflects my personal performance of the history, physical exam, medical decision making, and the department course for this patient. I have also personally directed, reviewed, and agree with the discharge instructions and disposition. <VickiIglesia - Last Filed: 03/10/18 11:20> Disposition/Present on Arrival <VickiIglesia Modi - Last Filed: 03/10/18 11:20> - Present on Arrival Any Indicators Present on Arrival: No History of DVT/PE: No History of Uncontrolled Diabetes: No Urinary Catheter: No History of Decub. Ulcer: No History Surgical Site Infection Following: None - Disposition Have Diagnosis and Disposition been Completed?: Yes Disposition Time: 11:27 Patient Plan: Observation <Doe Eric - Last Filed: 03/10/18 12:15> - Disposition Diagnosis: COPD exacerbation Disposition: HOSPITALIZED Patient Problems: Current Active Problems Problem Status Onset COPD exacerbation Acute Condition: STABLE Forms: [employer] (Italian)
[2018-03-10] MEDS: Albuterol-Ipratrop 3 mg / 0.5 (3 ml) UD IH SCH ×3 (10:35→11:34)
[2018-03-10 10:54] LABS: BASO # 0.02 K/mm3 (0.0-2.0); BASO % 0.2 % (0.0-3.0); EOS % 0.1 % (1.5-5.0); GRAN # 9.66 (1.4-6.5); GRAN % 88.6 % (50.0-68.0); HEMOGLOBIN 12.6 g/dL (12.0-16.0); LYMPH # 0.6 (1.2-3.4); LYMPH % 5.8 % (22.0-35.0); MEAN CELL VOLUME 84.2 fl (80.0-105.0); MEAN CORPUSCULAR HEMOGLOBIN 25.8 pg (25.0-35.0); MEAN CORPUSCULAR HGB CONC 30.7 g/dl (31.0-37.0); MEAN PLATELET VOLUME 11.4 fl (7.0-11.0); MONO # 0.6 (0.1-0.6); MONO % 5.3 % (1.0-6.0); RBC 4.88 10^6/uL (3.5-6.1); RED CELL DISTRIBUTION WIDTH 18.8 % (11.5-14.5); WHITE BLOOD COUNT 10.9 10^3/uL (4.5-11.0)
[2018-03-10 10:56] LABS: ALB/GLOB RATIO 1.4 (1.1-1.8); ALT/SGPT 281 U/L (7-56); AST/SGOT 328 U/L (14-36); BLOOD UREA NITROGEN 18 mg/dL (7-21); CALCIUM 9.1 mg/dL (8.4-10.5); GFR NON-AFRICAN AMERICAN > 60
[2018-03-10] MEDS ORDERED: Levalbuterol 1.25 MG/3 ML Inhal Soln UD IH STA (11:24)
--- NOTE | 2018-03-10 11:29 | RAD ---
Date of service: 03/10/2018 HISTORY: emphysema exacerbation COMPARISON: 04/10/2017 FINDINGS: LUNGS: No active pulmonary disease. PLEURA: No significant pleural effusion identified, no pneumothorax apparent. CARDIOVASCULAR: No aortic atherosclerotic calcification present. Normal cardiac size. No pulmonary vascular congestion. OSSEOUS STRUCTURES: No significant abnormalities. VISUALIZED UPPER ABDOMEN: Normal. OTHER FINDINGS: None. IMPRESSION: No active disease.
[2018-03-10 12:55] VITALS: BMI 20.5
[2018-03-10] MEDS ORDERED: Non Formulary Medication (Budesonide/Formoterol Fumarate [Symbicort 160-4.5 Mcg Inhaler] 1 IH PRN (12:57)
[2018-03-10] MEDS ORDERED: Levalbuterol 0.63 MG/3 ML Inhal Soln UD IH PRN (13:04)
--- NOTE | 2018-03-10 13:09 | CP.PCM.HP ---
<Leti Wood - Last Filed: 03/10/18 15:10> History of Present Illness - History of Present Illness History of Present Illness: PGY-3 h&p for hospitalist service 72 female with PMH of COPD, CVA 2017, a. fib on eliquis, thyroid ca s/p chemo and radiation 3 yo presented to the Emergency department with shortness of breath and cough.She states that her SOB started late last night. She tried using her home symbicort pump and nebulizer but her breathing did not improve. Symptoms worsen with any light activity. Patient states that he breathing and cough improved after the steroids and breathing treatment in [facility] ED. Patient states that she has had productive cough with green brown sputum. She states that she took over the counter medication such as dayquil. She has never been intubated in the past. Pt Denies chest pain, fevers, chills, nausea, vomiting, and pain, urinary symptoms. She denies any sick contacts. 12 point ROS is negative except as stated PMH: COPD, CVA 2017, a. fib on eliquis, thyriod ca s/p chemo and radiation 3 yo PSH: Appendectomy, cholecystctomy social history: quit smoking 17 yo, former 1-2 ppd for 40 years, stopped alcohol use 1 yo, denies illicit drug use family history: denied allergy: NKDA Present on Admission - Present on Admission Any Indicators Present on Admission: No Review of Systems - Review of Systems All systems: reviewed and no additional remarkable complaints except Past Patient History - Infectious Disease Hx of Infectious Diseases: None - Past Social History Smoking Status: Former Smoker - CARDIAC Hx Cardiac Disorders: Yes Hx Hypertension: Yes - PULMONARY Hx Respiratory Disorders: Yes (smoked ppd x 40 yrs. quit.) Hx Asthma: Yes Hx Emphysema: Yes - NEUROLOGICAL HX Cerebrovascular Accident: Yes (01/2017) Hx Transient Ischemic Attacks (TIA): Yes - HEENT Hx HEENT Problems: No - RENAL Hx Chronic Kidney Disease: No - ENDOCRINE/METABOLIC Other/Comment: thyroid cancer 3 years with radiation treatment=remission - HEMATOLOGICAL/ONCOLOGICAL Hx Blood Disorders: No - INTEGUMENTARY Hx Dermatological Problems: No - MUSCULOSKELETAL/RHEUMATOLOGICAL Hx Musculoskeletal Disorders: Yes - GASTROINTESTINAL Hx Gastrointestinal Disorders: Yes (HIATAL HERNIA,APPENDECTOMY) Hx Gall Bladder Disease: Yes (CHOLEYCSTECTOMY) - GENITOURINARY/GYNECOLOGICAL Hx Genitourinary Disorders: No - PSYCHIATRIC Hx Psychophysiologic Disorder: No Hx Substance Use: No - SURGICAL HISTORY Hx Appendectomy: Yes Hx Cholecystectomy: Yes - ANESTHESIA Hx Anesthesia: Yes Hx Anesthesia Reactions: No Hx Malignant Hyperthermia: No Meds Allergies/Adverse Reactions: Allergies Allergy/AdvReac Type Severity Reaction Status Date / Time No Known Allergies Allergy Verified 04/10/17 20:09 Physical Exam - Constitutional Appears: No Acute Distress - Head Exam Head Exam: ATRAUMATIC, NORMAL INSPECTION, NORMOCEPHALIC - Eye Exam Eye Exam: EOMI, Normal appearance - ENT Exam ENT Exam: Mucous Membranes Moist - Respiratory Exam Respiratory Exam: Wheezes (all lung logan), NORMAL BREATHING PATTERN. absent: Accessory Muscle Use, Decreased Breath Sounds, Respiratory Distress Additional comments: cough - Cardiovascular Exam Cardiovascular Exam: Tachycardia, Irregular Rhythm. absent: Bradycardia, Diastolic murmur, REGULAR RHYTHM, Systolic Murmur - GI/Abdominal Exam GI & Abdominal Exam: Normal Bowel Sounds, Soft. absent: Distended, Firm, Guarding, Tenderness - Extremities Exam Extremities exam: Positive for: normal inspection. Negative for: calf t enderness, pedal edema, tenderness - Back Exam Back exam: NORMAL INSPECTION. absent: CVA tenderness (L), CVA tenderness (R), paraspinal tenderness - Neurological Exam Neurological exam: Alert, Oriented x3 - Psychiatric Exam Psychiatric exam: Normal Affect, Normal Mood - Skin Skin Exam: Dry, Intact, Normal Color, Warm Results - Vital Signs Recent Vital Signs: Last Vital Signs Temp Pulse 152 H 03/10/18 11:47 Resp 24 03/10/18 11:47 BP 168/99 H 03/10/18 11:47 Pulse Ox 95 03/10/18 11:47 - Labs Result Diagrams: 03/10/18 10:24 03/10/18 10:24 Labs: Laboratory Results - last 24 hr 03/10/18 03/10/18 10:24 10:24 WBC 10.9 RBC 4.88 Hgb 12.6 Hct 41.1 MCV 84.2 MCH 25.8 MCHC 30.7 L RDW 18.8 H Plt Count 250 MPV 11.4 H Gran % 88.6 H Lymph % (Auto) 5.8 L [place] % (Auto) 5.3 Eos % (Auto) 0.1 L Baso % (Auto) 0.2 Gran # 9.66 H Lymph # (Auto) 0.6 L [place] # (Auto) 0.6 Eos # (Auto) 0.0 Baso # (Auto) 0.02 Sodium 140 Potassium 4.5 Chloride 105 Carbon Dioxide 30 Anion Gap 10 BUN 18 Creatinine 0.5 L Est GFR ( Amer) > 60 Est GFR (Non-Af Amer) > 60 Random Glucose 183 H Calcium 9.1 Phosphorus 3.5 Magnesium 1.6 L Total Bilirubin 1.0 AST 328 H D ALT 281 H Alkaline Phosphatase 240 H D Total Protein 6.8 Albumin 4.0 Globulin 2.8 Albumin/Globulin Ratio 1.4 Assessment & Plan - Assessment and Plan (Free Text) Assessment: 72 female with PMH of COPD, CVA 2017, a. 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 fib - EKG in ED showed a. fib - continue home eliquis - continue home diltiazem 120mg - will hold metoprolol due to copd exacerbation - if needed will give lopressor IV PRN for tachy cardia greater then 120 DVT ppx- eliquis GI- pepcid case seen and discussed with Dr. Damian <Jose Damian - Last Filed: 03/10/18 15:35> Results - Vital Signs Recent Vital Signs: Last Vital Signs Temp Pulse 117 H 03/10/18 15:09 Resp 24 03/10/18 11:47 BP 121/61 03/10/18 15:09 Pulse Ox 95 03/10/18 11:47 - Labs Result Diagrams: 03/10/18 10:24 03/10/18 10:24 Labs: Laboratory Results - last 24 hr 03/10/18 03/10/18 03/10/18 10:24 10:24 14:00 WBC 10.9 RBC 4.88 Hgb 12.6 Hct 41.1 MCV 84.2 MCH 25.8 MCHC 30.7 L RDW 18.8 H Plt Count 250 MPV 11.4 H Gran % 88.6 H Lymph % (Auto) 5.8 L [place] % (Auto) 5.3 Eos % (Auto) 0.1 L Baso % (Auto) 0.2 Gran # 9.66 H Lymph # (Auto) 0.6 L [place] # (Auto) 0.6 Eos # (Auto) 0.0 Baso # (Auto) 0.02 Sodium 140 Potassium 4.5 Chloride 105 Carbon Dioxide 30 Anion Gap 10 BUN 18 Creatinine 0.5 L Est GFR ( Amer) > 60 Est GFR (Non-Af Amer) > 60 Random Glucose 183 H Calcium 9.1 Phosphorus 3.5 Magnesium 1.6 L Total Bilirubin 1.0 AST 328 H D ALT 281 H Alkaline Phosphatase 240 H D Total Protein 6.8 Albumin 4.0 Globulin 2.8 Albumin/Globulin Ratio 1.4 TSH 3rd Generation 5.19 H Attending/Attestation - Attestation I have personally seen and examined this patient.: Yes I have fully participated in the care of the patient.: Yes I have reviewed all pertinent clinical information: Yes Notes (Text): Patient seen and examined with the residents, agree with above. Presents with dyspnea attributed to acute exacerbation of her copd with possible underlying bronchitis nebs/steroids/advair equivalent. Started on Abx will evaluate for possible home O2
[2018-03-10] MEDS ORDERED: cefTRIAXone 500 MG in Sodium Chloride 0.9% 50 ML IVPB SCH (13:30)
[2018-03-10] MEDS ORDERED: cefTRIAXone 1 GM/100 ML BAG IVPB SCH (13:45)
[2018-03-10] MEDS: Metoprolol 1 mg/ml Inj ONE ×2 (15:00→18:14)
[2018-03-10] MEDS: Metoprolol 1 mg/ml Inj IVP ONE ×3 (15:09→15:14)
[2018-03-10 17:22] LABS: HEPATITIS B SURFACE AG Negative (NEGATIVE)
--- NOTE | 2018-03-10 17:25 | CARD ---
APPROVED REPORT Date of service: 03/10/2018 EKG Measurement Heart [id number] <Conclusion> Atrial fibrillation with rapid ventricular response Low voltage QRS ST abnormality, possible digitalis effect Abnormal ECG
[2018-03-10 17:27] LABS: HEPATITIS A IGM NEGATIVE (NEGATIVE); HEPATITIS B CORE AB NEGATIVE (NEGATIVE)
[2018-03-10 17:39] LABS: HEPATITIS C ANTIBODY NEGATIVE (NEGATIVE)
--- NOTE | 2018-03-10 17:53 | US ---
Date of service: 03/10/2018 HISTORY: transaminitis COMPARISON: None. TECHNIQUE: Sonographic evaluation of the right upper quadrant of the abdomen. FINDINGS: LIVER: Measures 14.3 cm in length. Hepatopedal blood flow. Fatty infiltration manifest ultrasonographically as increased echogenicity of the liver parenchyma. No mass. No intrahepatic bile duct dilatation. GALLBLADDER: Status post cholecystectomy. No abnormality is seen in the gallbladder fossa. COMMON BILE DUCT: Measures 13.3 mm. No stones. Dilated common bile duct consistent with prior cholecystectomy. Similar finding was identified on a prior CT scan of the abdomen pelvis from 12/29/2016. PANCREAS: Unremarkable as visualized. No mass. No ductal dilatation. RIGHT KIDNEY: Measures 4.0 x 10.1 cm in length. Normal echogenicity. No calculus, mass, or hydronephrosis. AORTA: No aneurysmal dilatation. IVC: Unremarkable. OTHER FINDINGS: None . IMPRESSION: No acute findings related to/ accounting for the clinical presentation. Additional benign and/or incidental findings described above. This includes dilated common bile duct. No significant interval change compared to the prior examination(s).
[2018-03-10] MEDS ORDERED: Metoprolol 1 mg/ml Inj IVP ONE (18:18)
[2018-03-10] MEDS: Azithromycin 500MG/NS 250ml 500 MG/250 ML BAG IVPB SCH (18:30)
[2018-03-10] MEDS: guaiFENesin DM 100 mg-10 mg/5 ml UD PO PRN (18:32)
[2018-03-10] MEDS ORDERED: Influenza Vaccine 60 mcg/0.5 mL SYR (4YR UP) IM ONE (19:27)
[2018-03-10] MEDS ORDERED: Pneumococcal 23-Valent Vaccine IM ONE (19:27)
[2018-03-10] MEDS: Budesonide 0.5 mg/2 ml Inhal Susp UD IH SCH (20:06)
[2018-03-10] MEDS: Arformoterol 15 mcg/2 ml Inh Sol IH SCH (20:06)
[2018-03-10] MEDS: Levalbuterol 0.63 MG/3 ML Inhal Soln UD IH SCH (20:06)
[2018-03-10] MEDS: MethylPREDNISolone 40 mg Vial IVP SCH (21:56)
[2018-03-11] MEDS: Levalbuterol 0.63 MG/3 ML Inhal Soln UD IH SCH ×5 (01:42→23:31)
[2018-03-11] MEDS: guaiFENesin DM 100 mg-10 mg/5 ml UD PO PRN ×4 (01:57→22:10)
[2018-03-11] MEDS: Levothyroxine 125 MCG TAB PO SCH (05:06)
[2018-03-11] MEDS ORDERED: Magnesium Sulfate 1 gm in D5W 1 GM/100 ML BAG IVPB ONE (05:56)
[2018-03-11 06:26] LABS: GRAN # 7.77 (1.4-6.5); GRAN % 94.5 % (50.0-68.0); HEMOGLOBIN 11.8 g/dL (12.0-16.0); LYMPH # 0.2 (1.2-3.4); LYMPH % 2.9 % (22.0-35.0); MEAN CELL VOLUME 82.9 fl (80.0-105.0); MEAN CORPUSCULAR HEMOGLOBIN 25.6 pg (25.0-35.0); MEAN CORPUSCULAR HGB CONC 30.9 g/dl (31.0-37.0); MEAN PLATELET VOLUME 11.2 fl (7.0-11.0); MONO # 0.2 (0.1-0.6); MONO % 2.6 % (1.0-6.0); PLATELET COUNT 251 10^3/uL (120.0-450.0); RBC 4.61 10^6/uL (3.5-6.1); RED CELL DISTRIBUTION WIDTH 18.8 % (11.5-14.5); WHITE BLOOD COUNT 8.2 10^3/uL (4.5-11.0)
[2018-03-11 07:18] LABS: ALB/GLOB RATIO 1.5 (1.1-1.8); ALBUMIN 4.2 g/dL (3.0-4.8); ALT/SGPT 200 U/L (7-56); AST/SGOT 131 U/L (14-36); BLOOD UREA NITROGEN 19 mg/dL (7-21); CALCIUM 9.3 mg/dL (8.4-10.5); GFR NON-AFRICAN AMERICAN > 60
--- NOTE | 2018-03-11 07:34 | CP.PCM.PN ---
<Marcelo Vidal L - Last Filed: 03/11/18 17:52> Subjective - Date & Time of Evaluation Date of Evaluation: 03/11/18 Time of Evaluation: 07:33 - Subjective Subjective: Resident Progress Note for Hospitalist Service Patient examined at bedside. Overnight patient had afib, was given carzdizem with resolution. This morning patient admits to intermittent palpitations, cough, and shortness of breath. States that her breathing is improved. Denies fevers, chills, chest pain, abdominal pain, diarrhea, dysuria. Objective - Vital Signs/Intake and Output Vital Signs (last 24 hours): Temp Pulse Resp BP Pulse Ox 98.1 F 133 H 20 136/88 97 03/11/18 06:00 03/11/18 06:59 03/11/18 06:00 03/11/18 06:00 03/11/18 06:00 Intake and Output: 03/11/18 03/11/18 06:59 18:59 Intake Total 120 Output Total 0 Balance 120 - Medications Medications: Current Medications Apixaban (Eliquis) 5 mg PO DAILY [facility]; Protocol Arformoterol Tartrate (Brovana) 15 mcg IH [id number] [facility] Last Admin: 03/10/18 20:06 Dose: 15 mcg Aspirin (Ecotrin) 81 mg PO DAILY [facility] Last Admin: 03/10/18 16:53 Dose: 81 mg Atorvastatin Calcium (Lipitor) 40 mg PO DIN [facility] Last Admin: 03/10/18 18:27 Dose: 40 mg Budesonide (Pulmicort Respules) 0.5 mg IH [id number] [facility] Last Admin: 03/10/18 20:06 Dose: 0.5 mg Diltiazem HCl (Cardizem Cd) 120 mg PO DAILY [facility] Famotidine (Pepcid) 20 mg PO BID [facility] Last Admin: 03/10/18 18:27 Dose: 20 mg Guaifenesin/Dextromethorphan (Robitussin Dm) 5 ml PO Q4H PRN PRN Reason: Cough Last Admin: 03/11/18 01:57 Dose: 5 ml Azithromycin (Zithromax 500mg In Ns) 500 mg in 250 mls @ 167 mls/hr IVPB DAILY [facility]; Protocol Last Admin: 03/10/18 18:30 Dose: 167 mls/hr Ceftriaxone Sodium (Rocephin 1 Gram Ivpb) 1 gm in 100 mls @ 100 mls/hr IVPB Q24H [facility] Last Admin: 03/10/18 18:40 Dose: 100 mls/hr Ibuprofen (Motrin Tab) 600 mg PO Q6H PRN PRN Reason: Pain, moderate (4-7) Last Admin: 03/10/18 18:27 Dose: 600 mg Levalbuterol HCl (Xopenex) 0.63 mg IH [id number] [facility] Last Admin: 03/11/18 01:42 Dose: 0.63 mg Levalbuterol HCl (Xopenex) 0.63 mg IH Q4 PRN PRN Reason: Shortness of Breath Levothyroxine Sodium (Synthroid) 125 mcg PO 0600 [facility] Last Admin: 03/11/18 05:06 Dose: 125 mcg Methylprednisolone (Solu-Medrol) 40 mg IVP Q12 [facility] Last Admin: 03/10/18 21:56 Dose: 40 mg Sertraline HCl (Zoloft) 50 mg PO HS PRN PRN Reason: Insomnia - Labs Labs: 03/11/18 06:00 03/11/18 06:00 - Additional Findings Additional findings: - Constitutional Appears: No Acute Distress - Head Exam Head Exam: ATRAUMATIC, NORMAL INSPECTION, NORMOCEPHALIC - Eye Exam Eye Exam: EOMI, Normal appearance - ENT Exam ENT Exam: Mucous Membranes Moist - Respiratory Exam Respiratory Exam: Wheezes (all lung logan), NORMAL BREATHING PATTERN. absent: Accessory Muscle Use, Decreased Breath Sounds, Respiratory Distress Additional comments: cough - Cardiovascular Exam Cardiovascular Exam: Tachycardia, Irregular Rhythm. absent: Bradycardia, Diastolic murmur, REGULAR RHYTHM, Systolic Murmur - GI/Abdominal Exam GI & Abdominal Exam: Normal Bowel Sounds, Soft. absent: Distended, Firm, Guarding, Tenderness - Extremities Exam Extremities exam: Positive for: normal inspection. Negative for: calf tenderness, pedal edema, tenderness - Back Exam Back exam: NORMAL INSPECTION. absent: CVA tenderness (L), CVA tenderness (R), paraspinal tenderness - Neurological Exam Neurological exam: Alert, Oriented x3 - Psychiatric Exam Psychiatric exam: Normal Affect, Normal Mood - Skin Skin Exam: Dry, Intact, Normal Color, Warm Assessment and Plan - Assessment and Plan (Free Text) Assessment: Patient is a 72 year old female with PMH of COPD, CVA 2017, afib on eliquis, thyroid ca s/p chemo and radiation presenting with COPD exacerbation and cough. 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 Rickie Vidal PGY-1 <Jose Damian - Last Filed: 03/11/18 18:01> Objective - Vital Signs/Intake and Output Vital Signs (last 24 hours): Temp Pulse Resp BP Pulse Ox 98.4 F 137 H 14 122/85 97 03/11/18 12:00 03/11/18 17:48 03/11/18 12:00 03/11/18 17:48 03/11/18 06:00 Intake and Output: 03/11/18 03/11/18 06:59 18:59 Intake Total 120 Output Total 0 Balance 120 - Medications Medications: Current Medications Apixaban (Eliquis) 5 mg PO DAILY [facility]; Protocol Last Admin: 03/11/18 09:26 Dose: 5 mg Arformoterol Tartrate (Brovana) 15 mcg IH [id number] [facility] Last Admin: 03/11/18 08:27 Dose: 15 mcg Aspirin (Ecotrin) 81 mg PO DAILY [facility] Last Admin: 03/11/18 09:26 Dose: 81 mg Atorvastatin Calcium (Lipitor) 40 mg PO DIN [facility] Last Admin: 03/11/18 17:48 Dose: 40 mg Azithromycin (Zithromax) 500 mg PO DAILY [facility] Budesonide (Pulmicort Respules) 0.5 mg IH [id number] [facility] Last Admin: 03/11/18 08:27 Dose: 0.5 mg Cefpodoxime Proxetil (Vantin) 200 mg PO Q12 [facility] Diltiazem HCl (Cardizem Cd) 120 mg PO DAILY [facility] Last Admin: 03/11/18 17:49 Dose: Not Given Famotidine (Pepcid) 20 mg PO BID [facility] Last Admin: 03/11/18 09:25 Dose: 20 mg Guaifenesin/Dextromethorphan (Robitussin Dm) 5 ml PO Q4H PRN PRN Reason: Cough Last Admin: 03/11/18 17:48 Dose: 5 ml Ibuprofen (Motrin Tab) 600 mg PO Q6H PRN PRN Reason: Pain, moderate (4-7) Last Admin: 03/11/18 09:25 Dose: 600 mg Levalbuterol HCl (Xopenex) 0.63 mg IH Q4 PRN PRN Reason: Shortness of Breath Levalbuterol HCl (Xopenex) 0.63 mg IH [id number] [facility] Last Admin: 03/11/18 14:00 Dose: 0.63 mg Levothyroxine Sodium (Synthroid) 125 mcg PO 0600 [facility] Last Admin: 03/11/18 05:06 Dose: 125 mcg Methylprednisolone (Solu-Medrol) 40 mg IVP Q12 [facility] Last Admin: 03/11/18 09:25 Dose: 40 mg Metoprolol Tartrate (Lopressor) 50 mg PO BID [facility] Last Admin: 03/11/18 17:50 Dose: Not Given Sertraline HCl (Zoloft) 50 mg PO [id number] - Labs Labs: 03/11/18 06:00 03/11/18 06:00 Attending/Attestation - Attestation I have personally seen and examined this patient.: Yes I have fully participated in the care of the patient.: Yes I have reviewed all pertinent clinical information, including history, physical exam and plan: Yes
[2018-03-11 08:05] LABS: BAND 1 % (0-2); LYMPHOCYTE 1 % (22.0-35.0); NEUTROPHIL 98 % (50.0-70.0); NUCLEATED RED BLOOD CELL 1 %; POIKILOCYTOSIS 1+
[2018-03-11 08:06] LABS: LARGE PLATELETS PRESENT; OVALOCYTES 1+; PLATELET ESTIMATE NORMAL (NORMAL)
[2018-03-11] MEDS: Budesonide 0.5 mg/2 ml Inhal Susp UD IH SCH ×2 (08:27→19:31)
[2018-03-11] MEDS: Arformoterol 15 mcg/2 ml Inh Sol IH SCH ×2 (08:27→19:31)
[2018-03-11] MEDS: diltiaZEM 120 mg/24 Hours CD Cap PO SCH ×2 (08:32→17:49)
[2018-03-11] MEDS: Azithromycin 500MG/NS 250ml 500 MG/250 ML BAG IVPB SCH (09:23)
[2018-03-11] MEDS: MethylPREDNISolone 40 mg Vial IVP SCH ×2 (09:25→22:01)
--- NOTE | 2018-03-11 09:51 | CARD ---
APPROVED REPORT Date of service: 03/11/2018 EKG Measurement Heart [id number] <Conclusion> a fib with RVR Nonspecific ST and T wave abnormality Abnormal ECG
[2018-03-12] MEDS: guaiFENesin DM 100 mg-10 mg/5 ml UD PO PRN ×2 (04:06→08:12)
[2018-03-12] MEDS: Levalbuterol 0.63 MG/3 ML Inhal Soln UD IH SCH (04:21)
[2018-03-12] MEDS: Levothyroxine 125 MCG TAB PO SCH (05:45)
[2018-03-12] MEDS: Arformoterol 15 mcg/2 ml Inh Sol IH SCH ×2 (07:20→20:30)
[2018-03-12] MEDS: Budesonide 0.5 mg/2 ml Inhal Susp UD IH SCH ×2 (07:20→20:30)
--- NOTE | 2018-03-12 07:48 | CP.PCM.PN ---
<Marcelo Vidal L - Last Filed: 03/12/18 15:09> Subjective - Date & Time of Evaluation Date of Evaluation: 03/12/18 Time of Evaluation: 07:48 - Subjective Subjective: Resident Progress Note for Hospitalist Service Patient examined at bedside. No acute events overnight. Patient states her shortness of breath is improved, however still has persistent cough. Plan for transfer to TCU tomorrow. Denies fevers, chills, chest pain, palpitations, abdominal pain, diarrhea, dysuria. Objective - Vital Signs/Intake and Output Vital Signs (last 24 hours): Temp Pulse Resp BP Pulse Ox 98.1 F 112 H 20 122/85 97 03/11/18 18:00 03/11/18 18:00 03/11/18 18:00 03/11/18 18:00 03/11/18 06:00 Intake and Output: 03/12/18 03/12/18 06:59 18:59 Intake Total 360 Balance 360 - Medications Medications: Current Medications Apixaban (Eliquis) 5 mg PO DAILY [facility]; Protocol Last Admin: 03/11/18 09:26 Dose: 5 mg Arformoterol Tartrate (Brovana) 15 mcg IH [id number] [facility] Last Admin: 03/12/18 07:20 Dose: 15 mcg Aspirin (Ecotrin) 81 mg PO DAILY [facility] Last Admin: 03/11/18 09:26 Dose: 81 mg Atorvastatin Calcium (Lipitor) 40 mg PO DIN [facility] Last Admin: 03/11/18 17:48 Dose: 40 mg Azithromycin (Zithromax) 500 mg PO DAILY [facility] Budesonide (Pulmicort Respules) 0.5 mg IH [id number] [facility] Last Admin: 03/12/18 07:20 Dose: 0.5 mg Cefpodoxime Proxetil (Vantin) 200 mg PO Q12 [facility] Diltiazem HCl (Cardizem Cd) 120 mg PO DAILY [facility] Last Admin: 03/11/18 17:49 Dose: Not Given Famotidine (Pepcid) 20 mg PO BID [facility] Last Admin: 03/11/18 19:22 Dose: 20 mg Guaifenesin/Dextromethorphan (Robitussin Dm) 5 ml PO Q4H PRN PRN Reason: Cough Last Admin: 03/12/18 04:06 Dose: 5 ml Ibuprofen (Motrin Tab) 600 mg PO Q6H PRN PRN Reason: Pain, moderate (4-7) Last Admin: 03/11/18 22:10 Dose: 600 mg Levalbuterol HCl (Xopenex) 0.63 mg IH Q4 PRN PRN Reason: Shortness of Breath Levalbuterol HCl (Xopenex) 0.63 mg IH [id number] [facility] Last Admin: 03/12/18 04:21 Dose: 0.63 mg Levothyroxine Sodium (Synthroid) 125 mcg PO 0600 [facility] Last Admin: 03/12/18 05:45 Dose: 125 mcg Methylprednisolone (Solu-Medrol) 40 mg IVP Q12 [facility] Last Admin: 03/11/18 22:01 Dose: 40 mg Metoprolol Tartrate (Lopressor) 50 mg PO BID [facility] Last Admin: 03/11/18 17:50 Dose: Not Given Sertraline HCl (Zoloft) 50 mg PO HS [facility] Last Admin: 03/11/18 22:02 Dose: 50 mg - Labs Labs: 03/11/18 06:00 03/11/18 06:00 - Additional Findings Additional findings: - Constitutional Appears: No Acute Distress - Head Exam Head Exam: ATRAUMATIC, NORMAL INSPECTION, NORMOCEPHALIC - Eye Exam Eye Exam: EOMI, Normal appearance - ENT Exam ENT Exam: Mucous Membranes Moist - Respiratory Exam Respiratory Exam: Clear to Auscultation Bilaterally, NORMAL BREATHING PATTERN. absent: Accessory Muscle Use, Decreased Breath Sounds, Respiratory Distress, Wheezes Additional comments: cough - Cardiovascular Exam Cardiovascular Exam: Tachycardia, Irregular Rhythm. absent: Bradycardia, Diastolic murmur, REGULAR RHYTHM, Systolic Murmur - GI/Abdominal Exam GI & Abdominal Exam: Normal Bowel Sounds, Soft. absent: Distended, Firm, Guarding, Tenderness - Extremities Exam Extremities exam: Positive for: normal inspection. Negative for: calf tenderness, pedal edema, tenderness - Back Exam Back exam: NORMAL INSPECTION. absent: CVA tenderness (L), CVA tenderness (R), paraspinal tenderness - Neurological Exam Neurological exam: Alert, Oriented x3 - Psychiatric Exam Psychiatric exam: Normal Affect, Normal Mood - Skin Skin Exam: Dry, Intact, Normal Color, Warm Assessment and Plan - Assessment and Plan (Free Text) Assessment: Patient is a 72 year old female with PMH of COPD, CVA 2017, afib on eliquis, th yroid ca s/p chemo and radiation presenting with COPD exacerbation and cough. 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 Rickie Vidal PGY-1 <Jose Damian - Last Filed: 03/12/18 16:06> Objective - Vital Signs/Intake and Output Vital Signs (last 24 hours): Temp Pulse Resp BP Pulse Ox 98 F 107 H 18 126/89 97 03/12/18 12:00 03/12/18 12:00 03/12/18 12:00 03/12/18 12:00 03/11/18 06:00 Intake and Output: 03/12/18 03/12/18 06:59 18:59 Intake Total 360 Balance 360 - Medications Medications: Current Medications Apixaban (Eliquis) 5 mg PO DAILY [facility]; Protocol Last Admin: 03/12/18 09:02 Dose: 5 mg Arformoterol Tartrate (Brovana) 15 mcg IH [id number] [facility] Last Admin: 03/12/18 07:20 Dose: 15 mcg Aspirin (Ecotrin) 81 mg PO DAILY [facility] Last Admin: 03/12/18 09:02 Dose: 81 mg Atorvastatin Calcium (Lipitor) 40 mg PO DIN [facility] Last Admin: 03/11/18 17:48 Dose: 40 mg Azithromycin (Zithromax) 500 mg PO DAILY [facility] Last Admin: 03/12/18 09:02 Dose: 500 mg Benzonatate (Tessalon Perles) 100 mg PO TID [facility] Last Admin: 03/12/18 14:21 Dose: Not Given Budesonide (Pulmicort Respules) 0.5 mg IH [id number] [facility] Last Admin: 03/12/18 07:20 Dose: 0.5 mg Cefpodoxime Proxetil (Vantin) 200 mg PO Q12 [facility] Last Admin: 03/12/18 09:03 Dose: 200 mg Diltiazem HCl (Cardizem Cd) 120 mg PO DAILY [facility] Last Admin: 03/12/18 09:03 Dose: 120 mg Famotidine (Pepcid) 20 mg PO BID [facility] Last Admin: 03/12/18 09:02 Dose: 20 mg Guaifenesin/Dextromethorphan (Robitussin Dm) 5 ml PO Q4H PRN PRN Reason: Cough Last Admin: 03/12/18 08:12 Dose: 5 ml Ibuprofen (Motrin Tab) 600 mg PO Q6H PRN PRN Reason: Pain, moderate (4-7) Last Admin: 03/11/18 22:10 Dose: 600 mg Ipratropium [place] (Atrovent) 0.5 mg IH [id number] [facility] Levothyroxine Sodium (Synthroid) 125 mcg PO 0600 [facility] Last Admin: 03/12/18 05:45 Dose: 125 mcg Methylprednisolone (Solu-Medrol) 20 mg IVP Q12 [facility] Last Admin: 03/12/18 10:20 Dose: Not Given Metoprolol Tartrate (Lopressor) 50 mg PO BID [facility] Last Admin: 03/12/18 09:04 Dose: 50 mg Sertraline HCl (Zoloft) 50 mg PO HS [facility] Last Admin: 03/11/18 22:02 Dose: 50 mg - Labs Labs: 03/12/18 07:00 03/12/18 07:00 Attending/Attestation - Attestation I have personally seen and examined this patient.: Yes I have fully participated in the care of the patient.: Yes I have reviewed all pertinent clinical information, including history, physical exam and plan: Yes Notes (Text): Patient seen and examined with the residents, agree with above Clinically improving, dyspnea and wheezing much improved Will wean down on iv steroids and eventually taper. Remains tachycardic, will change nebs to Atrovent
[2018-03-12 08:05] LABS: GRAN # 10.76 (1.4-6.5); GRAN % 95.2 % (50.0-68.0); HEMOGLOBIN 10.7 g/dL (12.0-16.0); LYMPH # 0.3 (1.2-3.4); LYMPH % 2.5 % (22.0-35.0); MEAN CELL VOLUME 83.5 fl (80.0-105.0); MEAN CORPUSCULAR HEMOGLOBIN 24.8 pg (25.0-35.0); MEAN CORPUSCULAR HGB CONC 29.7 g/dl (31.0-37.0); MEAN PLATELET VOLUME 11.7 fl (7.0-11.0); MONO # 0.3 (0.1-0.6); MONO % 2.3 % (1.0-6.0); RBC 4.31 10^6/uL (3.5-6.1); RED CELL DISTRIBUTION WIDTH 18.9 % (11.5-14.5); WHITE BLOOD COUNT 11.3 10^3/uL (4.5-11.0)
[2018-03-12 08:36] LABS: ALB/GLOB RATIO 1.4 (1.1-1.8); ALBUMIN 3.6 g/dL (3.0-4.8); ALT/SGPT 169 U/L (7-56); AST/SGOT 97 U/L (14-36); BLOOD UREA NITROGEN 28 mg/dL (7-21); CALCIUM 8.7 mg/dL (8.4-10.5); GFR NON-AFRICAN AMERICAN > 60
[2018-03-12] MEDS: MethylPREDNISolone 40 mg Vial IVP SCH ×3 (09:02→21:59)
[2018-03-12] MEDS: Cefpodoxime (Vantin) 200 mg Tab PO SCH ×2 (09:03→21:59)
[2018-03-12] MEDS: diltiaZEM 120 mg/24 Hours CD Cap PO SCH (09:03)
[2018-03-12] MEDS: Ipratropium 0.02% Inhal Soln (0.5 mg/2.5 ml) UD IH SCH (20:30)
[2018-03-13] MEDS: Ipratropium 0.02% Inhal Soln (0.5 mg/2.5 ml) UD IH SCH ×5 (02:35→20:18)
[2018-03-13] MEDS: Levothyroxine 125 MCG TAB PO SCH (05:19)
[2018-03-13 05:55] VITALS: O2SAT 99
[2018-03-13 06:28] LABS: BASO # 0.01 K/mm3 (0.0-2.0); BASO % 0.1 % (0.0-3.0); GRAN # 8.27 (1.4-6.5); GRAN % 92.7 % (50.0-68.0); HEMOGLOBIN 11.2 g/dL (12.0-16.0); LYMPH # 0.3 (1.2-3.4); LYMPH % 3.6 % (22.0-35.0); MEAN CELL VOLUME 84.5 fl (80.0-105.0); MEAN CORPUSCULAR HEMOGLOBIN 25.2 pg (25.0-35.0); MEAN CORPUSCULAR HGB CONC 29.9 g/dl (31.0-37.0); MEAN PLATELET VOLUME 11.7 fl (7.0-11.0); MONO # 0.3 (0.1-0.6); MONO % 3.6 % (1.0-6.0); RBC 4.44 10^6/uL (3.5-6.1); RED CELL DISTRIBUTION WIDTH 19.2 % (11.5-14.5); WHITE BLOOD COUNT 8.9 10^3/uL (4.5-11.0)
[2018-03-13 06:31] LABS: ALB/GLOB RATIO 1.4 (1.1-1.8); ALBUMIN 3.6 g/dL (3.0-4.8); ALT/SGPT 170 U/L (7-56); AST/SGOT 84 U/L (14-36); BLOOD UREA NITROGEN 30 mg/dL (7-21); CALCIUM 8.8 mg/dL (8.4-10.5); GFR NON-AFRICAN AMERICAN > 60
--- NOTE | 2018-03-13 07:05 | CP.PCM.PN ---
Subjective - Date & Time of Evaluation Date of Evaluation: 03/13/18 Time of Evaluation: 07:05 - Subjective Subjective: Resident Progress Note for Hospitalist Service Patient examined at bedside. No acute events overnight. Patient reports continuous improvement in breathing. Denies headache, dizziness, chest pain, shortness of breath, nausea, vomiting. Plan for TCU transfer tomorrow. Objective - Vital Signs/Intake and Output Vital Signs (last 24 hours): Temp Pulse Resp BP Pulse Ox 97.9 F 111 H 18 141/96 H 99 03/13/18 05:54 03/13/18 05:54 03/13/18 05:54 03/13/18 05:54 03/13/18 05:54 Intake and Output: 03/13/18 03/13/18 06:59 18:59 Intake Total 720 Balance 720 - Medications Medications: Current Medications Apixaban (Eliquis) 5 mg PO DAILY [facility]; Protocol Last Admin: 03/12/18 09:02 Dose: 5 mg Arformoterol Tartrate (Brovana) 15 mcg IH [id number] [facility] Last Admin: 03/12/18 20:30 Dose: 15 mcg Aspirin (Ecotrin) 81 mg PO DAILY [facility] Last Admin: 03/12/18 09:02 Dose: 81 mg Atorvastatin Calcium (Lipitor) 40 mg PO DIN [facility] Last Admin: 03/12/18 18:26 Dose: 40 mg Azithromycin (Zithromax) 500 mg PO DAILY [facility] Last Admin: 03/12/18 09:02 Dose: 500 mg Benzonatate (Tessalon Perles) 100 mg PO TID [facility] Last Admin: 03/12/18 18:26 Dose: 100 mg Budesonide (Pulmicort Respules) 0.5 mg IH [id number] [facility] Last Admin: 03/12/18 20:30 Dose: 0.5 mg Cefpodoxime Proxetil (Vantin) 200 mg PO Q12 [facility] Last Admin: 03/12/18 21:59 Dose: 200 mg Diltiazem HCl (Cardizem Cd) 120 mg PO DAILY [facility] Last Admin: 03/12/18 09:03 Dose: 120 mg Famotidine (Pepcid) 20 mg PO BID [facility] Last Admin: 03/12/18 18:26 Dose: 20 mg Guaifenesin/Dextromethorphan (Robitussin Dm) 5 ml PO Q4H PRN PRN Reason: Cough Last Admin: 03/12/18 08:12 Dose: 5 ml Ibuprofen (Motrin Tab) 600 mg PO Q6H PRN PRN Reason: Pain, moderate (4-7) Last Admin: 03/11/18 22:10 Dose: 600 mg Ipratropium [place] (Atrovent) 0.5 mg IH [id number] [facility] Last Admin: 03/13/18 02:35 Dose: 0.5 mg Levothyroxine Sodium (Synthroid) 125 mcg PO 0600 [facility] Last Admin: 03/13/18 05:19 Dose: 125 mcg Methylprednisolone (Solu-Medrol) 20 mg IVP Q12 [facility] Last Admin: 03/12/18 21:59 Dose: 20 mg Metoprolol Tartrate (Lopressor) 50 mg PO BID [facility] Last Admin: 03/13/18 05:19 Dose: 50 mg Sertraline HCl (Zoloft) 50 mg PO HS [facility] Last Admin: 03/12/18 21:59 Dose: 50 mg - Labs Labs: 03/13/18 05:30 03/13/18 05:30 - Additional Findings Additional findings: - Constitutional Appears: No Acute Distress - Head Exam Head Exam: ATRAUMATIC, NORMOCEPHALIC - Eye Exam Eye Exam: EOMI, Normal appearance - ENT Exam ENT Exam: Mucous Membranes Moist - Respiratory Exam Respiratory Exam: Wheezing (improved), NORMAL BREATHING PATTERN. absent: Accessory Muscle Use, Decreased Breath Sounds, Respiratory Distress, Wheezes Additional comments: cough - Cardiovascular Exam Cardiovascular Exam: Tachycardia, Irregular Rhythm. absent: Bradycardia, Diastolic murmur, REGULAR RHYTHM, Systolic Murmur - GI/Abdominal Exam GI & Abdominal Exam: Normal Bowel Sounds, Soft. absent: Distended, Firm, Guarding, Tenderness - Extremities Exam Extremities exam: Positive for: normal inspection. Negative for: calf tenderness, pedal edema, tenderness - Neurological Exam Neurological exam: Alert, Oriented x3 - Psychiatric Exam Psychiatric exam: Normal Affect, Normal Mood - Skin Skin Exam: Dry, Intact, Normal Color, Warm Assessment and Plan - Assessment and Plan (Free Text) Assessment: Patient is a 72 year old female with PMH of COPD, CVA 2017, afib on eliquis, thyroid ca s/p chemo and radiation presenting with COPD exacerbation and cough. 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 Shawn Vidal PGY-1
[2018-03-13] MEDS: Budesonide 0.5 mg/2 ml Inhal Susp UD IH SCH ×2 (07:16→20:19)
[2018-03-13] MEDS: Arformoterol 15 mcg/2 ml Inh Sol IH SCH ×2 (07:16→20:19)
[2018-03-13] MEDS: diltiaZEM 180 mg/24 Hours CD Cap PO SCH (09:52)
[2018-03-13] MEDS: MethylPREDNISolone 40 mg Vial IVP SCH ×2 (09:52→21:37)
[2018-03-13] MEDS: Cefpodoxime (Vantin) 200 mg Tab PO SCH ×2 (09:52→21:37)
[2018-03-13] MEDS: guaiFENesin DM 100 mg-10 mg/5 ml UD PO PRN (17:27)
[2018-03-14] MEDS: Ipratropium 0.02% Inhal Soln (0.5 mg/2.5 ml) UD IH SCH ×6 (01:00→14:48)
[2018-03-14] MEDS: Levothyroxine 125 MCG TAB PO SCH (05:04)
--- NOTE | 2018-03-14 07:06 | CP.PCM.PN ---
Objective - Vital Signs/Intake and Output Vital Signs (last 24 hours): Temp Pulse Resp BP Pulse Ox 97.9 F 128 H 20 124/95 H 99 03/14/18 06:02 03/14/18 06:02 03/14/18 06:02 03/14/18 06:02 03/14/18 06:02 Intake and Output: 03/14/18 03/14/18 06:59 18:59 Intake Total 1920 Output Total 0 Balance 1920 - Medications Medications: Current Medications Apixaban (Eliquis) 5 mg PO DAILY [facility]; Protocol Last Admin: 03/13/18 09:53 Dose: 5 mg Arformoterol Tartrate (Brovana) 15 mcg IH [id number] [facility] Last Admin: 03/13/18 20:19 Dose: 15 mcg Aspirin (Ecotrin) 81 mg PO DAILY [facility] Last Admin: 03/13/18 09:52 Dose: 81 mg Atorvastatin Calcium (Lipitor) 40 mg PO DIN [facility] Last Admin: 03/12/18 18:26 Dose: 40 mg Azithromycin (Zithromax) 500 mg PO DAILY [facility] Last Admin: 03/13/18 09:52 Dose: 500 mg Benzonatate (Tessalon Perles) 100 mg PO TID [facility] Last Admin: 03/13/18 17:28 Dose: 100 mg Budesonide (Pulmicort Respules) 0.5 mg IH [id number] [facility] Last Admin: 03/13/18 20:19 Dose: 0.5 mg Cefpodoxime Proxetil (Vantin) 200 mg PO Q12 [facility] Last Admin: 03/13/18 21:37 Dose: 200 mg Diltiazem HCl (Cardizem Cd) 180 mg PO DAILY [facility] Last Admin: 03/13/18 09:52 Dose: 180 mg Famotidine (Pepcid) 20 mg PO BID [facility] Last Admin: 03/13/18 17:28 Dose: 20 mg Guaifenesin/Dextromethorphan (Robitussin Dm) 5 ml PO Q4H PRN PRN Reason: Cough Last Admin: 03/13/18 17:27 Dose: 5 ml Ibuprofen (Motrin Tab) 600 mg PO Q6H PRN PRN Reason: Pain, moderate (4-7) Last Admin: 03/13/18 16:13 Dose: 600 mg Ipratropium [place] (Atrovent) 0.5 mg IH [id number] [facility] Last Admin: 03/14/18 04:30 Dose: 0.5 mg Levothyroxine Sodium (Synthroid) 125 mcg PO 0600 [facility] Last Admin: 03/14/18 05:04 Dose: 125 mcg Methylprednisolone (Solu-Medrol) 20 mg IVP Q12 [facility] Last Admin: 03/13/18 21:37 Dose: 20 mg Metoprolol Tartrate (Lopressor) 50 mg PO BID [facility] Last Admin: 03/13/18 17:28 Dose: 50 mg Sertraline HCl (Zoloft) 50 mg PO HS [facility] Last Admin: 03/13/18 21:37 Dose: 50 mg - Labs Labs: 03/13/18 05:30 03/13/18 05:30
[2018-03-14 07:08] LABS: GRAN # 6.66 (1.4-6.5); GRAN % 87.8 % (50.0-68.0); LYMPH # 0.3 (1.2-3.4); LYMPH % 4.3 % (22.0-35.0); MEAN CELL VOLUME 84.4 fl (80.0-105.0); MEAN CORPUSCULAR HEMOGLOBIN 24.9 pg (25.0-35.0); MEAN CORPUSCULAR HGB CONC 29.5 g/dl (31.0-37.0); MEAN PLATELET VOLUME 11.4 fl (7.0-11.0); MONO # 0.6 (0.1-0.6); MONO % 7.9 % (1.0-6.0); RBC 4.42 10^6/uL (3.5-6.1); RED CELL DISTRIBUTION WIDTH 18.9 % (11.5-14.5); WHITE BLOOD COUNT 7.6 10^3/uL (4.5-11.0)
[2018-03-14] MEDS: Budesonide 0.5 mg/2 ml Inhal Susp UD IH SCH (07:16)
[2018-03-14] MEDS: Arformoterol 15 mcg/2 ml Inh Sol IH SCH (07:17)
[2018-03-14 08:01] LABS: ALB/GLOB RATIO 1.4 (1.1-1.8); ALBUMIN 3.6 g/dL (3.0-4.8); ALT/SGPT 138 U/L (7-56); AST/SGOT 52 U/L (14-36); BLOOD UREA NITROGEN 28 mg/dL (7-21); CALCIUM 8.8 mg/dL (8.4-10.5); GFR NON-AFRICAN AMERICAN > 60
[2018-03-14] MEDS: diltiaZEM 180 mg/24 Hours CD Cap PO SCH (09:48)
[2018-03-14] MEDS: Cefpodoxime (Vantin) 200 mg Tab PO SCH (09:48)
[2018-03-14] MEDS: MethylPREDNISolone 40 mg Vial IVP SCH (09:49)
[2018-03-14 12:25] VITALS: BP 139/90; PULSE 110; RESP 19; TEMP 98.1
--- NOTE | 2018-03-14 15:34 | CP.PCM.DIS ---
Provider - Provider Date of Admission: 03/11/18 16:30 Attending physician: Stacia Escobar MD Primary care physician: Zari Thomson MD Consults: 03/10/18 19:06 Social Work Referral Routine Comment: dc plan Physician Instructions: Reason For Exam: eval 03/10/18 19:27 Inpatient [employer] Core Measures Referral Routine Comment: [facility] Physician Instructions: Reason For Exam: eval Transition In Care/Readmission Reduction Routine Comment: [facility] Physician Instructions: Reason For Exam: eval 03/11/18 16:38 TCU [Evaluation for TRCU] Routine Comment: Physician Instructions: Reason For Exam: DECONDITIONING Time Spent in preparation of Discharge (in minutes): 35 Diagnosis - Discharge Diagnosis (1) COPD exacerbation Status: Acute (2) Atrial fibrillation with RVR Status: Chronic Hospital Course - Lab Results Lab Results: Most Recent Lab Values WBC 7.6 10^3/uL (4.5-11.0) 03/14/18 06:00 RBC 4.42 10^6/uL (3.5-6.1) 03/14/18 06:00 Hgb 11.0 g/dL (12.0-16.0) L 03/14/18 06:00 Hct 37.3 % (36.0-48.0) 03/14/18 06:00 MCV 84.4 fl (80.0-105.0) 03/14/18 06:00 MCH 24.9 pg (25.0-35.0) L 03/14/18 06:00 MCHC 29.5 g/dl (31.0-37.0) L 03/14/18 06:00 RDW 18.9 % (11.5-14.5) H 03/14/18 06:00 Plt Count 246 10^3/uL (120.0-450.0) 03/14/18 06:00 MPV 11.4 fl (7.0-11.0) H 03/14/18 06:00 Gran % 87.8 % (50.0-68.0) H 03/14/18 06:00 Lymph % (Auto) 4.3 % (22.0-35.0) L 03/14/18 06:00 [place] % (Auto) 7.9 % (1.0-6.0) H 03/14/18 06:00 Eos % (Auto) 0.0 % (1.5-5.0) L 03/14/18 06:00 Baso % (Auto) 0.0 % (0.0-3.0) 03/14/18 06:00 Gran # 6.66 (1.4-6.5) H 03/14/18 06:00 Lymph # (Auto) 0.3 (1.2-3.4) L 03/14/18 06:00 [place] # (Auto) 0.6 (0.1-0.6) 03/14/18 06:00 Eos # (Auto) 0.0 (0.0-0.7) 03/14/18 06:00 Baso # (Auto) 0.00 K/mm3 (0.0-2.0) 03/14/18 06:00 Neutrophils % (Manual) 98 % (50.0-70.0) H 03/11/18 06:00 Band Neutrophils % 1 % (0-2) 03/11/18 06:00 Lymphocytes % (Manual) 1 % (22.0-35.0) L 03/11/18 06:00 Monocytes % (Manual) TEST NOT PERFORMED 03/11/18 06:00 Nucleated RBC % 1 % 03/11/18 06:00 Platelet Evaluation Normal (NORMAL) 03/11/18 06:00 Large Platelets Present 03/11/18 06:00 Poikilocytosis (manual 1+ 03/11/18 06:00 Ovalocytes 1+ 03/11/18 06:00 Sodium 140 mmol/L (132-148) 03/14/18 06:00 Potassium 4.7 mmol/L (3.6-5.0) 03/14/18 06:00 Chloride 103 mmol/L (98-107) 03/14/18 06:00 Carbon Dioxide 33 mmol/L (21-33) 03/14/18 06:00 Anion Gap 9 (10-20) L 03/14/18 06:00 BUN 28 mg/dL (7-21) H 03/14/18 06:00 Creatinine 0.5 mg/dl (0.7-1.2) L 03/14/18 06:00 Est GFR ( Amer) > 60 03/14/18 06:00 Est GFR (Non-Af Amer) > 60 03/14/18 06:00 Random Glucose 163 mg/dL (70-110) H 03/14/18 06:00 Calcium 8.8 mg/dL (8.4-10.5) 03/14/18 06:00 Phosphorus 2.9 mg/dL (2.5-4.5) 03/14/18 06:00 Magnesium 2.1 mg/dL (1.7-2.2) 03/14/18 06:00 Total Bilirubin 0.6 mg/dL (0.2-1.3) 03/14/18 06:00 AST 52 U/L (14-36) H D 03/14/18 06:00 ALT 138 U/L (7-56) H 03/14/18 06:00 Alkaline Phosphatase 149 U/L (38-126) H 03/14/18 06:00 Troponin I 0.02 ng/mL D 03/11/18 06:00 Total Protein 6.2 g/dL (5.8-8.3) 03/14/18 06:00 Albumin 3.6 g/dL (3.0-4.8) 03/14/18 06:00 Globulin 2.6 gm/dL 03/14/18 06:00 Albumin/Globulin Ratio 1.4 (1.1-1.8) 03/14/18 06:00 Free T4 1.08 ng/dL (0.78-2.19) 03/11/18 06:00 TSH 3rd Generation 5.19 mIU/mL (0.46-4.68) H 03/10/18 14:00 Hepatitis A IgM Ab Negative (NEGATIVE) 03/10/18 14:00 Hep Bs Antigen Negative (NEGATIVE) 03/10/18 14:00 Hep B Core IgM Ab Negative (NEGATIVE) 03/10/18 14:00 Hepatitis C Antibody Negative (NEGATIVE) 03/10/18 14:00 - Hospital Course Hospital Course: On admission: 72 female with PMH of COPD, CVA 2017, a. fib on eliquis, thyroid ca s/p chemo and radiation 3 yo presented to the Emergency department with shortness of breath and cough.She states that her SOB started late last night. She tried using her home symbicort pump and nebulizer but her breathing did not improve. Symptoms worsen with any light activity. Patient states that he breathing and cough improved after the steroids and breathing treatment in [facility] ED. Patient states that she has had productive cough with green brown sputum. She states that she took over the counter medication such as dayquil. She has never been intubated in the past. Pt Denies chest pain, fevers, chills, nausea, vomiting, and pain, urinary symptoms. She denies any sick contacts. 12 point ROS is negative except as stated During hospital course: Patient had CXR done which showed no active disease. Patient was placed on azithromycin, Vantin, solu-medrol. Patient also continued home pulmicort and brovana. Patient was initially on Xopenex but was changed to Atrovent due to persisting tachycardia. Patient also had EKG done which showed afib, was continued on home eliquis in addition to diltiazem and metoprolol. Patient had transaminitis, which was noted to be elevated from previous admission to the hospital. Abdominal ultrasound showed no acute findings, fatty infiltration of liver. Hepatitis panel was negative. Lipitor was held. Patient to have repeat labs to monitor liver function and resume Lipitor when transaminitis resolves. Patient's TSH was 5.19 and free T4 1.08 on labs. Patient was optimized for discharge and discharged to TCU. Please see EMR for full summary. - Date & Time of H&P Date of H&P: 03/10/18 Time of H&P: 13:07 Discharge Exam - Additional Findings Additional findings: - Constitutional Appears: No Acute Distress - Head Exam Head Exam: ATRAUMATIC, NORMOCEPHALIC - Eye Exam Eye Exam: EOMI, Normal appearance - ENT Exam ENT Exam: Mucous Membranes Moist - Respiratory Exam Respiratory Exam: Wheezing (mild), NORMAL BREATHING PATTERN. absent: Accessory Muscle Use, Decreased Breath Sounds, Respiratory Distress Additional comments: cough - Cardiovascular Exam Cardiovascular Exam: Tachycardia, Irregular Rhythm. absent: Bradycardia, Diastolic murmur, REGULAR RHYTHM, Systolic Murmur - GI/Abdominal Exam GI & Abdominal Exam: Normal Bowel Sounds, Soft. absent: Distended, Firm, Guarding, Tenderness - Extremities Exam Extremities exam: Positive for: normal inspection. Negative for: calf tenderness, pedal edema, tenderness - Neurological Exam Neurological exam: Alert, Oriented x3 - Psychiatric Exam Psychiatric exam: Normal Affect, Normal Mood - Skin Skin Exam: Dry, Intact, Normal Color, Warm Discharge Plan - Follow Up Plan Condition: STABLE Disposition: REHAB FACILITY/REHAB UNIT Patient education suggested?: Yes Instructions: Asthma, Adult (DC), Avoiding Asthma Triggers, Exacerbation of COPD (DC), Asthma Action Plan Additional Instructions: Patient discharged to TCU. Referrals: Zari Valenzuela MD [Primary Care Provider] -
[2018-03-14] MEDS: guaiFENesin DM 100 mg-10 mg/5 ml UD PO PRN (16:13)
== END 2018-03-14 17:04 | DRG 192 ==
LOC: ED 09:46 → ERH 12:20 → 2RNO 16:59 → OBSVTOIN 03-11 16:30
PROVIDERS: ADMIT Hospitalist; ATTEND Internal Medicine
DX: J44.1 Chronic obstructive pulmonary disease with (acute) exacerbation (principal); I10 Essential (primary) hypertension; E89.0 Postprocedural hypothyroidism; I48.91 Unspecified atrial fibrillation; Z86.73 Personal history of transient ischemic attack (TIA), and cerebral infarction without residual deficits; Z85.850 Personal history of malignant neoplasm of thyroid; Z92.3 Personal history of irradiation; Z92.21 Personal history of antineoplastic chemotherapy; Z87.891 Personal history of nicotine dependence; Z79.01 Long term (current) use of anticoagulants; Z79.51 Long term (current) use of inhaled steroids; Z79.82 Long term (current) use of aspirin

== ENCOUNTER 2018-03-14 16:36 | Inpatient (IN) | payer OTHER, MEDICARE ==
[2018-03-14 17:52] VITALS: BMI 22.2
[2018-03-14] MEDS ORDERED: Influenza Vaccine 60 mcg/0.5 mL SYR (4YR UP) IM ONE (20:41)
[2018-03-14] MEDS ORDERED: Pneumococcal 23-Valent Vaccine IM ONE (20:41)
[2018-03-14] MEDS: Arformoterol 15 mcg/2 ml Inh Sol IH SCH (20:55)
[2018-03-14] MEDS: Budesonide 0.5 mg/2 ml Inhal Susp UD IH SCH (20:55)
[2018-03-14] MEDS: Cefpodoxime (Vantin) 200 mg Tab PO SCH (21:32)
[2018-03-14] MEDS: guaiFENesin DM 100 mg-10 mg/5 ml UD PO PRN (21:33)
[2018-03-14] MEDS ORDERED: MethylPREDNISolone 40 mg Vial IVP SCH (22:00)
[2018-03-15] MEDS: Levothyroxine 125 MCG TAB PO SCH (05:07)
[2018-03-15] MEDS: guaiFENesin DM 100 mg-10 mg/5 ml UD PO PRN ×2 (05:07→23:43)
[2018-03-15] MEDS: Ipratropium 0.02% Inhal Soln (0.5 mg/2.5 ml) UD IH PRN (06:44)
--- NOTE | 2018-03-15 07:07 | CP.PCM.HP ---
<Marcelo Vidal - Last Filed: 03/15/18 17:30> History of Present Illness - History of Present Illness History of Present Illness: Resident History & Physical for Hospitalist Service 72 female with PMH of COPD, CVA 2017, a. fib on eliquis, thyroid ca s/p chemo and radiation 3 yo presented to the Emergency department with shortness of breath and cough.She states that her SOB started late last night. She tried using her home symbicort pump and nebulizer but her breathing did not improve. Symptoms worsen with any light activity. Patient states that he breathing and c ough improved after the steroids and breathing treatment in [facility] ED. Patient states that she has had productive cough with green brown sputum. She states that she took over the counter medication such as dayquil. She has never been intubated in the past. Pt Denies chest pain, fevers, chills, nausea, vomiting, and pain, urinary symptoms. She denies any sick contacts. 12 point ROS is negative except as stated. Patient had CXR done which showed no active disease. Patient was placed on azithromycin, Vantin, solu-medrol. Patient also continued home pulmicort and brovana. Patient was initially on Xopenex but was changed to Atrovent due to persisting tachycardia. Patient also had EKG done which showed afib, was continued on home eliquis in addition to diltiazem and metoprolol. Patient had transaminitis, which was noted to be elevated from previous admission to the hospital. Abdominal ultrasound showed no acute findings, fatty infiltration of liver. Hepatitis panel was negative. Lipitor was held. Patient to have repeat labs to monitor liver function and resume Lipitor when transaminitis resolves. Patient's TSH was 5.19 and free T4 1.08 on labs. Patient was optimized for discharge and admitted to TCU. PMH: COPD, CVA 2017, a. fib on eliquis, thyriod ca s/p chemo and radiation 3 yo PSH: Appendectomy, cholecystctomy social history: quit smoking 17 yo, former 1-2 ppd for 40 years, stopped alcohol use 1 yo, denies illicit drug use family history: denied allergy: NKDA Present on Admission - Present on Admission Any Indicators Present on Admission: No Review of Systems - Review of Systems All systems: reviewed and no additional remarkable complaints except (as stated in HPI) Past Patient History - Infectious Disease Hx of Infectious Diseases: None - Past Social History Smoking Status: Former Smoker - CARDIAC Hx Cardiac Disorders: Yes (A fib on eliquis) - PULMONARY Hx Chronic Obstructive Pulmonary Disease (COPD): Yes - NEUROLOGICAL HX Cerebrovascular Accident: Yes - HEENT Hx HEENT Problems: No - RENAL Hx Chronic Kidney Disease: No - ENDOCRINE/METABOLIC Hx Endocrine Disorders: Yes Other/Comment: thyroid cancer 3 years with radiation treatment=remission - HEMATOLOGICAL/ONCOLOGICAL Hx Blood Disorders: Yes Hx Anemia: Yes (iron deficiency anemia in past ok now) Hx Cancer: Yes (thyroid ca) Other/Comment: pt had chemo/radiation treatments 3 yrs ago for thyroid ca pres ently in remission - INTEGUMENTARY Hx Dermatological Problems: No - MUSCULOSKELETAL/RHEUMATOLOGICAL Hx Falls: No - GASTROINTESTINAL Hx Gastrointestinal Disorders: Yes (IRON DEFICINCY ANEMIA,POOR APPETITE,HIATAL HERNIA,CHOLECYSTECTOMY,APPENDECT) - GENITOURINARY/GYNECOLOGICAL Hx Genitourinary Disorders: No Hx Reproductive Disorders: No - PSYCHIATRIC Hx Substance Use: No - SURGICAL HISTORY Hx Surgeries: Yes Hx Appendectomy: Yes (1955) Hx Cholecystectomy: Yes (30 yrs ago) Other/Comment: r foot bunyonectomy - ANESTHESIA Hx Anesthesia: Yes Hx Anesthesia Reactions: No Hx Malignant Hyperthermia: No Meds Allergies/Adverse Reactions: Allergies Allergy/AdvReac Type Severity Reaction Status Date / Time No Known Allergies Allergy Verified 04/10/17 20:09 Physical Exam - Additional Findings Additional findings: - Head Exam Head Exam: ATRAUMATIC, NORMOCEPHALIC - Eye Exam Eye Exam: EOMI, Normal appearance - ENT Exam ENT Exam: Mucous Membranes Moist - Respiratory Exam Respiratory Exam: Clear to Auscultation Bilaterally, NORMAL BREATHING PATTERN. absent: Accessory Muscle Use, Decreased Breath Sounds, Respiratory Distress, Wheezing - Cardiovascular Exam Cardiovascular Exam: Tachycardia, Irregular Rhythm. absent: Bradycardia, Diastolic murmur, REGULAR RHYTHM, Systolic Murmur - GI/Abdominal Exam GI & Abdominal Exam: Normal Bowel Sounds, Soft. absent: Distended, Firm, Guarding, Tenderness - Extremities Exam Extremities exam: Positive for: normal inspection. Negative for: calf te nderness, pedal edema, tenderness - Neurological Exam Neurological exam: Alert, Oriented x3 - Psychiatric Exam Psychiatric exam: Normal Affect, Normal Mood - Skin Skin Exam: Dry, Intact, Normal Color, Warm Results - Vital Signs Recent Vital Signs: Last Vital Signs Temp 97.9 F 03/14/18 20:24 Pulse 101 H 03/15/18 05:06 Resp 99 H 03/14/18 20:24 BP 153/99 H 03/15/18 05:06 Pulse Ox Assessment & Plan - Assessment and Plan (Free Text) Assessment: Patient is a 72 year old female with past medical history of COPD, CVA 2017, afib on eliquis, thyroid ca s/p chemo and radiation admitted for management of acute COPD exacerbation and cough, now transferred to TCU. Plan: Acute exacerbation of COPD - CXR showed no active disease - Solu-medrol 20 mg IV Q12 discontinued - Prednisone 40 mg PO daily - Xopenx changed to Atrovent due to persisting tachycardia - continue home pulmicort and brovana - azithromycin 500 mg PO daily and Vantin 200 mg PO Q12 - Robitussin, tessalon perles PRN Afib - EKG in ED showed afib - continue home eliquis - continue home diltiazem 120 mg PO daily and metoprolol 50 mg PO BID - Lopressor IV PRN Transaminitis - elevated from previous admission, trending down - Abd U/S showed no acute findings, fatty infiltration of liver - Hepatitis panel negative - hold Lipitor 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 Shawn Vidal PGY-1 - Date & Time Date: 03/15/18 Time: 07:05 <Stacia Escobar - Last Filed: 03/19/18 11:55> Results - Vital Signs Recent Vital Signs: Last Vital Signs Temp 97.2 F L 03/18/18 16:00 Pulse 70 03/19/18 09:55 Resp 20 03/18/18 16:00 BP 130/90 03/19/18 09:55 Pulse Ox 90 L 03/18/18 16:00 - Labs Result Diagrams: 03/19/18 07:00 03/19/18 07:00 Labs: Laboratory Results - last 24 hr 03/19/18 03/19/18 03/19/18 04:12 07:00 07:00 WBC 9.5 RBC 4.71 Hgb 11.8 L Hct 38.9 MCV 82.6 MCH 25.1 MCHC 30.3 L RDW 17.9 H Plt Count 268 MPV 11.5 H Gran % 82.3 H Lymph % (Auto) 9.5 L [place] % (Auto) 8.1 H Eos % (Auto) 0.1 L Baso % (Auto) 0.0 Gran # 7.84 H Lymph # (Auto) 0.9 L [place] # (Auto) 0.8 H Eos # (Auto) 0.0 Baso # (Auto) 0.00 Sodium 139 Potassium 3.5 L Chloride 101 Carbon Dioxide 35 H Anion Gap 7 L BUN 21 Creatinine 0.7 Est GFR ( Amer) > 60 Est GFR (Non-Af Amer) > 60 POC Glucose (mg/dL) 113 H Random Glucose 93 Calcium 9.3 Phosphorus 3.4 Magnesium 2.1 Total Bilirubin 0.9 AST 22 ALT 71 H Alkaline Phosphatase 99 Total Protein 5.8 Albumin 3.4 Globulin 2.3 Albumin/Globulin Ratio 1.5 Attending/Attestation - Attestation I have personally seen and examined this patient.: Yes I have fully participated in the care of the patient.: Yes I have reviewed all pertinent clinical information: Yes Notes (Text): 03/19/18 11:54 Medical record note made by the resident after discussion with my direction and input after the patient was personally seen and examined by me. I have reviewed the chart and agree that the record accurately reflects by personal performance of the history, physical exam, data review, and medical decision-making, in the course for the patient. I have also personally directed the plan of care. 72 year old female with past medical history of COPD, CVA 2017, afib on eliquis, thyroid ca s/p chemo and radiation admitted for management of acute COPD exacerbation and cough, now transferred to TCU for rehabilitation. Cough and dyspnea is improving, . LFT are coming down. AF, rate is controlled. Continue physical therapy. Management plan was discussed in detail with patient. Education was provided.
[2018-03-15] MEDS: Budesonide 0.5 mg/2 ml Inhal Susp UD IH SCH ×2 (07:30→20:41)
[2018-03-15] MEDS: Arformoterol 15 mcg/2 ml Inh Sol IH SCH ×2 (07:37→20:40)
[2018-03-15] MEDS: diltiaZEM 180 mg/24 Hours CD Cap PO SCH ×2 (07:57→10:28)
[2018-03-15] MEDS: Cefpodoxime (Vantin) 200 mg Tab PO SCH ×2 (10:29→21:12)
[2018-03-15] MEDS ORDERED: MethylPREDNISolone 40 mg Vial IVP SCH (18:00)
[2018-03-16] MEDS: Ipratropium 0.02% Inhal Soln (0.5 mg/2.5 ml) UD IH PRN (02:56)
[2018-03-16] MEDS: Levothyroxine 125 MCG TAB PO SCH (05:28)
[2018-03-16] MEDS: guaiFENesin DM 100 mg-10 mg/5 ml UD PO PRN ×2 (05:29→21:24)
[2018-03-16 06:29] LABS: GRAN # 6.48 (1.4-6.5); GRAN % 84.9 % (50.0-68.0); HEMOGLOBIN 11.7 g/dL (12.0-16.0); LYMPH # 0.8 (1.2-3.4); MEAN CELL VOLUME 83.5 fl (80.0-105.0); MEAN CORPUSCULAR HEMOGLOBIN 24.7 pg (25.0-35.0); MEAN CORPUSCULAR HGB CONC 29.5 g/dl (31.0-37.0); MEAN PLATELET VOLUME 11.4 fl (7.0-11.0); MONO # 0.4 (0.1-0.6); MONO % 5.1 % (1.0-6.0); RBC 4.74 10^6/uL (3.5-6.1); WHITE BLOOD COUNT 7.6 10^3/uL (4.5-11.0)
[2018-03-16 07:22] LABS: ALB/GLOB RATIO 1.4 (1.1-1.8); ALBUMIN 3.5 g/dL (3.0-4.8); ALT/SGPT 127 U/L (7-56); AST/SGOT 36 U/L (14-36); BLOOD UREA NITROGEN 21 mg/dL (7-21); CALCIUM 9.1 mg/dL (8.4-10.5); GFR NON-AFRICAN AMERICAN > 60
[2018-03-16] MEDS: Budesonide 0.5 mg/2 ml Inhal Susp UD IH SCH ×2 (07:32→20:08)
[2018-03-16] MEDS: Arformoterol 15 mcg/2 ml Inh Sol IH SCH ×2 (07:38→20:08)
[2018-03-16] MEDS: diltiaZEM 180 mg/24 Hours CD Cap PO SCH (09:20)
[2018-03-16] MEDS: Cefpodoxime (Vantin) 200 mg Tab PO SCH ×2 (09:22→23:50)
[2018-03-17] MEDS: Levothyroxine 125 MCG TAB PO SCH (05:17)
[2018-03-17] MEDS: guaiFENesin DM 100 mg-10 mg/5 ml UD PO PRN ×2 (05:17→21:37)
--- NOTE | 2018-03-17 07:12 | CP.PCM.PN ---
<Marcelo Vidal L - Last Filed: 03/17/18 13:59> Subjective - Date & Time of Evaluation Date of Evaluation: 03/17/18 Time of Evaluation: 07:11 - Subjective Subjective: Resident Progress Note for Hospitalist Service Patient examined at bedside. No acute events overnight. Patient reports feeling much better since admission, she was able to tolerate walking up stairs with physical therapy. Denies fevers, chills, chest pain, shortness of breath at rest, abdominal pain. Objective - Vital Signs/Intake and Output Vital Signs (last 24 hours): Temp Pulse Resp BP Pulse Ox 97.8 F 91 H 20 151/97 H 98 03/16/18 16:00 03/17/18 05:17 03/16/18 16:00 03/17/18 05:17 03/16/18 16:00 - Medications Medications: Current Medications Apixaban (Eliquis) 5 mg PO DAILY [facility]; Protocol Last Admin: 03/16/18 11:40 Dose: 5 mg Arformoterol Tartrate (Brovana) 15 mcg IH [id number] [facility]; Protocol Last Admin: 03/16/18 20:08 Dose: 15 mcg Aspirin (Ecotrin) 81 mg PO 0800 [facility]; Protocol Last Admin: 03/16/18 09:21 Dose: 81 mg Atorvastatin Calcium (Lipitor) 40 mg PO DIN [facility]; Protocol Azithromycin (Zithromax) 500 mg PO DAILY [facility]; Protocol Last Admin: 03/16/18 09:22 Dose: 500 mg Benzonatate (Tessalon Perles) 100 mg PO TID [facility]; Protocol Last Admin: 03/16/18 17:34 Dose: 100 mg Budesonide (Pulmicort Respules) 0.5 mg IH [id number] [facility]; Protocol Last Admin: 03/16/18 20:08 Dose: 0.5 mg Cefpodoxime Proxetil (Vantin) 200 mg PO Q12 [facility]; Protocol Last Admin: 03/16/18 23:50 Dose: 200 mg Diltiazem HCl (Cardizem Cd) 180 mg PO DAILY [facility]; Protocol Last Admin: 03/16/18 09:20 Dose: 180 mg Famotidine (Pepcid) 20 mg PO 0600,2200 [facility]; Protocol Last Admin: 03/17/18 05:17 Dose: 20 mg Guaifenesin/Dextromethorphan (Robitussin Dm) 5 ml PO Q4H PRN; Protocol PRN Reason: Cough Last Admin: 03/17/18 05:17 Dose: 5 ml Ibuprofen (Motrin Tab) 600 mg PO Q6H PRN; Protocol PRN Reason: Pain, moderate (4-7) Last Admin: 03/16/18 05:27 Dose: 600 mg Ipratropium [place] (Atrovent) 0.5 mg IH [id number] PRN; Protocol PRN Reason: Shortness of Breath Last Admin: 03/16/18 02:56 Dose: 0.5 mg Levothyroxine Sodium (Synthroid) 125 mcg PO 0600 [facility]; Protocol Last Admin: 03/17/18 05:17 Dose: 125 mcg Metoprolol Tartrate (Lopressor) 50 mg PO 0600,1800 [facility]; Protocol Last Admin: 03/17/18 05:17 Dose: 50 mg Prednisone (Prednisone Tab) 40 mg PO 0800 [facility] Last Admin: 03/16/18 11:40 Dose: 40 mg Sertraline HCl (Zoloft) 50 mg PO HS [facility]; Protocol Last Admin: 03/16/18 21:26 Dose: 50 mg - Labs Labs: 03/16/18 06:00 03/16/18 06:00 - Additional Findings Additional findings: - Head Exam Head Exam: ATRAUMATIC, NORMOCEPHALIC - Eye Exam Eye Exam: EOMI, Normal appearance - ENT Exam ENT Exam: Mucous Membranes Moist - Respiratory Exam Respiratory Exam: Wheezing (mild), NORMAL BREATHING PATTERN. absent: Accessory Muscle Use, Decreased Breath Sounds, Respiratory Distress - Cardiovascular Exam Cardiovascular Exam: Tachycardia, Irregular Rhythm. absent: Bradycardia, Diastolic murmur, REGULAR RHYTHM, Systolic Murmur - GI/Abdominal Exam GI & Abdominal Exam: Normal Bowel Sounds, Soft. absent: Distended, Firm, Guarding, Tenderness - Extremities Exam Extremities exam: Positive for: normal inspection. Negative for: calf tenderness, pedal edema, tenderness - Neurological Exam Neurological exam: Alert, Oriented x3 - Psychiatric Exam Psychiatric exam: Normal Affect, Normal Mood - Skin Skin Exam: Dry, Intact, Normal Color, Warm Assessment and Plan - Assessment and Plan (Free Text) Assessment: Patient is a 72 year old female with past medical history of COPD, CVA 2017, afib on eliquis, thyroid ca s/p chemo and radiation admitted for management of acute COPD exacerbation and cough, now transferred to TCU. Plan: Acute exacerbation of COPD - CXR showed no active disease - Prednisone 40 mg PO daily tapered to 30 mg PO daily - Xopenx changed to Atrovent due to persisting tachycardia - continue home pulmicort and brovana - azithromycin 500 mg PO daily and Vantin 200 mg PO Q12 - Robitussin, tesfernando walkeres PRN Afib - EKG in ED showed afib - continue home eliquis - continue home diltiazem 120 mg PO daily and metoprolol 50 mg PO BID - Lopressor IV PRN Transaminitis - elevated from previous admission, trending down - Abd U/S showed no acute findings, fatty infiltration of liver - Hepatitis panel negative - hold Lipitor 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 Shawn Vidal PGY-1 <Stacia Escobar - Last Filed: 03/19/18 11:53> Objective - Vital Signs/Intake and Output Vital Signs (last 24 hours): Temp Pulse Resp BP Pulse Ox 97.2 F L 70 20 130/90 90 L 03/18/18 16:00 03/19/18 09:55 03/18/18 16:00 03/19/18 09:55 03/18/18 16:00 - Medications Medications: Current Medications Albuterol/Ipratropium (Duoneb 3 Mg/0.5 Mg (3 Ml) Ud) 3 ml IH [id number] [facility] Last Admin: 03/19/18 11:15 Dose: 3 ml Apixaban (Eliquis) 5 mg PO DAILY [facility]; Protocol Last Admin: 03/19/18 09:54 Dose: 5 mg Arformoterol Tartrate (Brovana) 15 mcg IH [id number] [facility]; Protocol Last Admin: 03/19/18 07:32 Dose: 15 mcg Aspirin (Ecotrin) 81 mg PO 0800 [facility]; Protocol Last Admin: 03/19/18 07:59 Dose: 81 mg Atorvastatin Calcium (Lipitor) 40 mg PO DIN [facility]; Protocol Azithromycin (Zithromax) 500 mg PO DAILY [facility]; Protocol Last Admin: 03/19/18 09:53 Dose: 500 mg Benzonatate (Tessalon Perles) 100 mg PO TID [facility]; Protocol Last Admin: 03/19/18 09:54 Dose: 100 mg Budesonide (Pulmicort Respules) 0.5 mg IH [id number] [facility]; Protocol Last Admin: 03/19/18 07:32 Dose: 0.5 mg Cefpodoxime Proxetil (Vantin) 200 mg PO Q12 [facility]; Protocol Last Admin: 03/19/18 09:54 Dose: 200 mg Diltiazem HCl (Cardizem Cd) 180 mg PO DAILY [facility]; Protocol Last Admin: 03/19/18 09:55 Dose: 180 mg Famotidine (Pepcid) 20 mg PO 0600,2200 [facility]; Protocol Last Admin: 03/19/18 05:21 Dose: 20 mg Guaifenesin/Dextromethorphan (Robitussin Dm) 5 ml PO Q4H PRN; Protocol PRN Reason: Cough Last Admin: 03/18/18 05:17 Dose: 5 ml Ibuprofen (Motrin Tab) 600 mg PO Q6H PRN; Protocol PRN Reason: Pain, moderate (4-7) Last Admin: 03/16/18 05:27 Dose: 600 mg Ipratropium [place] (Atrovent) 0.5 mg IH [id number] PRN; Protocol PRN Reason: Shortness of Breath Last Admin: 03/16/18 02:56 Dose: 0.5 mg Levothyroxine Sodium (Synthroid) 125 mcg PO 0600 [facility]; Protocol Last Admin: 03/19/18 05:22 Dose: 125 mcg Metoprolol Tartrate (Lopressor) 50 mg PO 0800,2000 [facility]; Protocol Last Admin: 03/19/18 08:16 Dose: 50 mg Prednisone (Prednisone Tab) 20 mg PO 0800 [facility] Sertraline HCl (Zoloft) 50 mg PO HS [facility]; Protocol Last Admin: 03/18/18 21:46 Dose: 50 mg - Labs Labs: 03/19/18 07:00 03/19/18 07:00 Attending/Attestation - Attestation I have personally seen and examined this patient.: Yes I have fully participated in the care of the patient.: Yes I have reviewed all pertinent clinical information, including history, physical exam and plan: Yes Notes (Text): 03/19/18 11:53 Medical record note made by the resident after discussion with my direction and input after the patient was personally seen and examined by me. I have reviewed the chart and agree that the record accurately reflects by personal performance of the history, physical exam, data review, and medical decision-making, in the course for the patient. I have also personally directed the plan of care. 72 year old female with past medical history of COPD, CVA 2017, afib on eliquis, thyroid ca s/p chemo and radiation admitted for management of acute COPD exacerbation and cough, now transferred to TCU for rehabilitation. Cough and dyspnea is improving, continue Neb, will switch to oral Prednisone. LFT are improving.We will continue monitoring. Continue physical therapy. Management plan was discussed in detail with patient. Education was provided.
[2018-03-17] MEDS: Budesonide 0.5 mg/2 ml Inhal Susp UD IH SCH ×2 (08:48→21:30)
[2018-03-17] MEDS: Arformoterol 15 mcg/2 ml Inh Sol IH SCH ×2 (08:48→21:30)
[2018-03-17 09:08] LABS: GRAN # 7.86 (1.4-6.5); GRAN % 83.4 % (50.0-68.0); HEMOGLOBIN 11.9 g/dL (12.0-16.0); LYMPH # 0.6 (1.2-3.4); LYMPH % 6.4 % (22.0-35.0); MEAN CORPUSCULAR HEMOGLOBIN 25.3 pg (25.0-35.0); MEAN CORPUSCULAR HGB CONC 30.5 g/dl (31.0-37.0); MEAN PLATELET VOLUME 11.2 fl (7.0-11.0); MONO % 10.2 % (1.0-6.0); RBC 4.7 10^6/uL (3.5-6.1); WHITE BLOOD COUNT 9.4 10^3/uL (4.5-11.0)
[2018-03-17 09:23] LABS: ALB/GLOB RATIO 1.4 (1.1-1.8); ALBUMIN 3.5 g/dL (3.0-4.8); ALT/SGPT 96 U/L (7-56); AST/SGOT 28 U/L (14-36); BLOOD UREA NITROGEN 20 mg/dL (7-21); CALCIUM 9.5 mg/dL (8.4-10.5); GFR NON-AFRICAN AMERICAN > 60
[2018-03-17] MEDS: diltiaZEM 180 mg/24 Hours CD Cap PO SCH (09:23)
[2018-03-17] MEDS: Cefpodoxime (Vantin) 200 mg Tab PO SCH ×2 (09:23→21:37)
[2018-03-17] MEDS: Albuterol-Ipratrop 3 mg / 0.5 (3 ml) UD IH SCH ×3 (11:15→21:30)
[2018-03-17 16:16] VITALS: RESP 20
[2018-03-18] MEDS: Albuterol-Ipratrop 3 mg / 0.5 (3 ml) UD IH SCH ×4 (00:30→21:20)
[2018-03-18] MEDS: guaiFENesin DM 100 mg-10 mg/5 ml UD PO PRN (05:17)
[2018-03-18] MEDS: Levothyroxine 125 MCG TAB PO SCH (05:17)
[2018-03-18] MEDS: Budesonide 0.5 mg/2 ml Inhal Susp UD IH SCH (07:25)
[2018-03-18] MEDS: Arformoterol 15 mcg/2 ml Inh Sol IH SCH (07:25)
[2018-03-18] MEDS: diltiaZEM 180 mg/24 Hours CD Cap PO SCH ×2 (08:06→10:43)
[2018-03-18] MEDS: Cefpodoxime (Vantin) 200 mg Tab PO SCH ×2 (10:44→21:46)
[2018-03-18 16:55] VITALS: TEMP 97.2; O2SAT 90
[2018-03-19] MEDS: Albuterol-Ipratrop 3 mg / 0.5 (3 ml) UD IH SCH ×7 (01:15→23:20)
[2018-03-19] MEDS: Budesonide 0.5 mg/2 ml Inhal Susp UD IH SCH ×3 (01:20→19:52)
[2018-03-19] MEDS: Arformoterol 15 mcg/2 ml Inh Sol IH SCH ×3 (01:20→19:52)
[2018-03-19] MEDS: Levothyroxine 125 MCG TAB PO SCH (05:22)
[2018-03-19 07:26] LABS: EOS % 0.1 % (1.5-5.0); GRAN # 7.84 (1.4-6.5); GRAN % 82.3 % (50.0-68.0); HEMOGLOBIN 11.8 g/dL (12.0-16.0); LYMPH # 0.9 (1.2-3.4); LYMPH % 9.5 % (22.0-35.0); MEAN CELL VOLUME 82.6 fl (80.0-105.0); MEAN CORPUSCULAR HEMOGLOBIN 25.1 pg (25.0-35.0); MEAN CORPUSCULAR HGB CONC 30.3 g/dl (31.0-37.0); MEAN PLATELET VOLUME 11.5 fl (7.0-11.0); MONO # 0.8 (0.1-0.6); MONO % 8.1 % (1.0-6.0); RBC 4.71 10^6/uL (3.5-6.1); RED CELL DISTRIBUTION WIDTH 17.9 % (11.5-14.5); WHITE BLOOD COUNT 9.5 10^3/uL (4.5-11.0)
[2018-03-19 08:13] LABS: ALB/GLOB RATIO 1.5 (1.1-1.8); ALBUMIN 3.4 g/dL (3.0-4.8); ALT/SGPT 71 U/L (7-56); AST/SGOT 22 U/L (14-36); BLOOD UREA NITROGEN 21 mg/dL (7-21); CALCIUM 9.3 mg/dL (8.4-10.5); GFR NON-AFRICAN AMERICAN > 60
[2018-03-19] MEDS: Cefpodoxime (Vantin) 200 mg Tab PO SCH ×2 (09:54→21:15)
[2018-03-19] MEDS: diltiaZEM 180 mg/24 Hours CD Cap PO SCH (09:55)
--- NOTE | 2018-03-19 10:57 | CP.PCM.PN ---
<Doe Salcedo - Last Filed: 03/19/18 10:52> Subjective - Date & Time of Evaluation Date of Evaluation: 03/19/18 Time of Evaluation: 10:52 - Subjective Subjective: Medicine Progress Note for Dr. Escobar Patient seen and examined at bedside. No acute overnight events. Patient offers no complaints at this time. Patient denied CP, SOB, n/v/d, abdominal pain, fever, chills, AMADOR, or dizziness. Objective - Vital Signs/Intake and Output Vital Signs (last 24 hours): Temp Pulse Resp BP Pulse Ox 97.2 F L 70 20 130/90 90 L 03/18/18 16:00 03/19/18 09:55 03/18/18 16:00 03/19/18 09:55 03/18/18 16:00 - Medications Medications: Current Medications Albuterol/Ipratropium (Duoneb 3 Mg/0.5 Mg (3 Ml) Ud) 3 ml IH [id number] [facility] Last Admin: 03/19/18 07:32 Dose: 3 ml Apixaban (Eliquis) 5 mg PO DAILY [facility]; Protocol Last Admin: 03/19/18 09:54 Dose: 5 mg Arformoterol Tartrate (Brovana) 15 mcg IH [id number] [facility]; Protocol Last Admin: 03/19/18 07:32 Dose: 15 mcg Aspirin (Ecotrin) 81 mg PO 0800 [facility]; Protocol Last Admin: 03/19/18 07:59 Dose: 81 mg Atorvastatin Calcium (Lipitor) 40 mg PO DIN [facility]; Protocol Azithromycin (Zithromax) 500 mg PO DAILY [facility]; Protocol Last Admin: 03/19/18 09:53 Dose: 500 mg Benzonatate (Tessalon Perles) 100 mg PO TID [facility]; Protocol Last Admin: 03/19/18 09:54 Dose: 100 mg Budesonide (Pulmicort Respules) 0.5 mg IH [id number] [facility]; Protocol Last Admin: 03/19/18 07:32 Dose: 0.5 mg Cefpodoxime Proxetil (Vantin) 200 mg PO Q12 [facility]; Protocol Last Admin: 03/19/18 09:54 Dose: 200 mg Diltiazem HCl (Cardizem Cd) 180 mg PO DAILY [facility]; Protocol Last Admin: 03/19/18 09:55 Dose: 180 mg Famotidine (Pepcid) 20 mg PO 0600,2200 [facility]; Protocol Last Admin: 03/19/18 05:21 Dose: 20 mg Guaifenesin/Dextromethorphan (Robitussin Dm) 5 ml PO Q4H PRN; Protocol PRN Reason: Cough Last Admin: 03/18/18 05:17 Dose: 5 ml Ibuprofen (Motrin Tab) 600 mg PO Q6H PRN; Protocol PRN Reason: Pain, moderate (4-7) Last Admin: 03/16/18 05:27 Dose: 600 mg Ipratropium [place] (Atrovent) 0.5 mg IH [id number] PRN; Protocol PRN Reason: Shortness of Breath Last Admin: 03/16/18 02:56 Dose: 0.5 mg Levothyroxine Sodium (Synthroid) 125 mcg PO 0600 [facility]; Protocol Last Admin: 03/19/18 05:22 Dose: 125 mcg Metoprolol Tartrate (Lopressor) 50 mg PO 0800,2000 [facility]; Protocol Last Admin: 03/19/18 08:16 Dose: 50 mg Prednisone (Prednisone Tab) 20 mg PO 0800 [facility] Sertraline HCl (Zoloft) 50 mg PO HS [facility]; Protocol Last Admin: 03/18/18 21:46 Dose: 50 mg - Labs Labs: 03/19/18 07:00 03/19/18 07:00 - Constitutional Appears: In Acute Distress - Head Exam Head Exam: NORMAL INSPECTION - Eye Exam Eye Exam: EOMI, Normal appearance, PERRL Pupil Exam: NORMAL ACCOMODATION - ENT Exam ENT Exam: Mucous Membranes Moist, Normal Exam - Neck Exam Neck Exam: Normal Inspection - Respiratory Exam Respiratory Exam: Clear to Ausculation Bilateral. absent: Decreased Breath Sounds, Rales, Rhonchi, Wheezes - Cardiovascular Exam Cardiovascular Exam: RRR, +S1, +S2. absent: Clicks, Rubs, Murmur - GI/Abdominal Exam GI & Abdominal Exam: Soft. absent: Distended, Guarding, Mass, Rebound - Extremities Exam Extremities Exam: Normal Inspection - Back Exam Back Exam: NORMAL INSPECTION - Neurological Exam Neurological Exam: Alert, Awake, CN II-XII Intact, Oriented x3 - Psychiatric Exam Psychiatric exam: Normal Mood - Skin Skin Exam: Dry Assessment and Plan - Assessment and Plan (Free Text) Assessment: Patient is a 72 year old female with past medical history of COPD, CVA 2017, afib on eliquis, thyroid ca s/p chemo and radiation admitted for management of acute COPD exacerbation and cough, now transferred to TCU. Plan: Acute exacerbation of COPD - CXR showed no active disease - Prednisone tapered to 20 mg PO daily - Weaning O2 via NC - Xopenex changed to Atrovent due to persisting tachycardia - continue home pulmicort and brovana - azithromycin 500 mg PO daily and Vantin 200 mg PO Q12 - Robitussin, tessalon perles PRN Afib - continue home eliquis - continue home diltiazem 120 mg PO daily and metoprolol 50 mg PO BID - Lopressor IV PRN Transaminitis, improved - elevated from previous admission, trending down - Abd U/S showed no acute findings, fatty infiltration of liver - Hepatitis panel negative - hold Lipitor 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 Shawn Salcedo, DO PGY2 <Stacia Escobar - Last Filed: 03/19/18 11:52> Objective - Vital Signs/Intake and Output Vital Signs (last 24 hours): Temp Pulse Resp BP Pulse Ox 97.2 F L 70 20 130/90 90 L 03/18/18 16:00 03/19/18 09:55 03/18/18 16:00 03/19/18 09:55 03/18/18 16:00 - Medications Medications: Current Medications Albuterol/Ipratropium (Duoneb 3 Mg/0.5 Mg (3 Ml) Ud) 3 ml IH [id number] [facility] Last Admin: 03/19/18 11:15 Dose: 3 ml Apixaban (Eliquis) 5 mg PO DAILY [facility]; Protocol Last Admin: 03/19/18 09:54 Dose: 5 mg Arformoterol Tartrate (Brovana) 15 mcg IH [id number] [facility]; Protocol Last Admin: 03/19/18 07:32 Dose: 15 mcg Aspirin (Ecotrin) 81 mg PO 0800 [facility]; Protocol Last Admin: 03/19/18 07:59 Dose: 81 mg Atorvastatin Calcium (Lipitor) 40 mg PO DIN [facility]; Protocol Azithromycin (Zithromax) 500 mg PO DAILY [facility]; Protocol Last Admin: 03/19/18 09:53 Dose: 500 mg Benzonatate (Tessalon Perles) 100 mg PO TID [facility]; Protocol Last Admin: 03/19/18 09:54 Dose: 100 mg Budesonide (Pulmicort Respules) 0.5 mg IH [id number] [facility]; Protocol Last Admin: 03/19/18 07:32 Dose: 0.5 mg Cefpodoxime Proxetil (Vantin) 200 mg PO Q12 [facility]; Protocol Last Admin: 03/19/18 09:54 Dose: 200 mg Diltiazem HCl (Cardizem Cd) 180 mg PO DAILY [facility]; Protocol Last Admin: 03/19/18 09:55 Dose: 180 mg Famotidine (Pepcid) 20 mg PO 0600,2200 [facility]; Protocol Last Admin: 03/19/18 05:21 Dose: 20 mg Guaifenesin/Dextromethorphan (Robitussin Dm) 5 ml PO Q4H PRN; Protocol PRN Reason: Cough Last Admin: 03/18/18 05:17 Dose: 5 ml Ibuprofen (Motrin Tab) 600 mg PO Q6H PRN; Protocol PRN Reason: Pain, moderate (4-7) Last Admin: 03/16/18 05:27 Dose: 600 mg Ipratropium [place] (Atrovent) 0.5 mg IH [id number] PRN; Protocol PRN Reason: Shortness of Breath Last Admin: 03/16/18 02:56 Dose: 0.5 mg Levothyroxine Sodium (Synthroid) 125 mcg PO 0600 [facility]; Protocol Last Admin: 03/19/18 05:22 Dose: 125 mcg Metoprolol Tartrate (Lopressor) 50 mg PO 0800,2000 [facility]; Protocol Last Admin: 03/19/18 08:16 Dose: 50 mg Prednisone (Prednisone Tab) 20 mg PO 0800 [facility] Sertraline HCl (Zoloft) 50 mg PO HS [facility]; Protocol Last Admin: 03/18/18 21:46 Dose: 50 mg - Labs Labs: 03/19/18 07:00 03/19/18 07:00 Attending/Attestation - Attestation I have personally seen and examined this patient.: Yes I have fully participated in the care of the patient.: Yes I have reviewed all pertinent clinical information, including history, physical exam and plan: Yes Notes (Text): 03/19/18 11:48 Medical record note made by the resident after discussion with my direction and input after the patient was personally seen and examined by me. I have reviewed the chart and agree that the record accurately reflects by personal performance of the history, physical exam, data review, and medical decision-making, in the course for the patient. I have also personally directed the plan of care. 72 year old female with past medical history of COPD, CVA 2017, afib on eliquis, thyroid ca s/p chemo and radiation admitted for management of acute COPD exacerbation and cough, now transferred to TCU for rehabilitation. Cough and dyspnea is improving, we will decrease dose of Prednisone to 30 mg po daily. LFT are improving. Continue physical therapy. Management plan was discussed in detail with patient. Education was provided. 03/19/18 11:52
[2018-03-20] MEDS: Albuterol-Ipratrop 3 mg / 0.5 (3 ml) UD IH SCH ×3 (05:00→11:34)
[2018-03-20] MEDS: Levothyroxine 125 MCG TAB PO SCH (05:06)
[2018-03-20] MEDS: Arformoterol 15 mcg/2 ml Inh Sol IH SCH (07:22)
[2018-03-20] MEDS: Budesonide 0.5 mg/2 ml Inhal Susp UD IH SCH (07:22)
[2018-03-20 11:02] VITALS: BP 127/95; PULSE 68
[2018-03-20] MEDS: guaiFENesin DM 100 mg-10 mg/5 ml UD PO PRN (11:02)
--- NOTE | 2018-03-20 11:29 | CP.PCM.DIS ---
<Doe Salcedo - Last Filed: 03/20/18 11:25> Provider - Provider Date of Admission: 03/14/18 16:36 Attending physician: Stacia Escobar MD Primary care physician: Zari Thomson MD Consults: 03/14/18 20:41 Inpatient TOWER SWITCH OPERATOR Core Measures Referral Routine Comment: Physician Instructions: Reason For Exam: EVALUATION Social Work Referral Routine Comment: NEEDS ASSISTANCE AT HOME Physician Instructions: Reason For Exam: EVALUATION Transition In Care/Readmission Reduction Routine Comment: Physician Instructions: Reason For Exam: EVALUATION Time Spent in preparation of Discharge (in minutes): 45 Diagnosis - Discharge Diagnosis (1) COPD exacerbation Status: Resolved Priority: High Hospital Course - Lab Results Lab Results: Most Recent Lab Values WBC 9.5 10^3/uL (4.5-11.0) 03/19/18 07:00 RBC 4.71 10^6/uL (3.5-6.1) 03/19/18 07:00 Hgb 11.8 g/dL (12.0-16.0) L 03/19/18 07:00 Hct 38.9 % (36.0-48.0) 03/19/18 07:00 MCV 82.6 fl (80.0-105.0) 03/19/18 07:00 MCH 25.1 pg (25.0-35.0) 03/19/18 07:00 MCHC 30.3 g/dl (31.0-37.0) L 03/19/18 07:00 RDW 17.9 % (11.5-14.5) H 03/19/18 07:00 Plt Count 268 10^3/uL (120.0-450.0) 03/19/18 07:00 MPV 11.5 fl (7.0-11.0) H 03/19/18 07:00 Gran % 82.3 % (50.0-68.0) H 03/19/18 07:00 Lymph % (Auto) 9.5 % (22.0-35.0) L 03/19/18 07:00 Banks % (Auto) 8.1 % (1.0-6.0) H 03/19/18 07:00 Eos % (Auto) 0.1 % (1.5-5.0) L 03/19/18 07:00 Baso % (Auto) 0.0 % (0.0-3.0) 03/19/18 07:00 Gran # 7.84 (1.4-6.5) H 03/19/18 07:00 Lymph # (Auto) 0.9 (1.2-3.4) L 03/19/18 07:00 Banks # (Auto) 0.8 (0.1-0.6) H 03/19/18 07:00 Eos # (Auto) 0.0 (0.0-0.7) 03/19/18 07:00 Baso # (Auto) 0.00 K/mm3 (0.0-2.0) 03/19/18 07:00 Sodium 139 mmol/L (132-148) 03/19/18 07:00 Potassium 3.5 mmol/L (3.6-5.0) L 03/19/18 07:00 Chloride 101 mmol/L (98-107) 03/19/18 07:00 Carbon Dioxide 35 mmol/L (21-33) H 03/19/18 07:00 Anion Gap 7 (10-20) L 03/19/18 07:00 BUN 21 mg/dL (7-21) 03/19/18 07:00 Creatinine 0.7 mg/dl (0.7-1.2) 03/19/18 07:00 Est GFR ( Amer) > 60 03/19/18 07:00 Est GFR (Non-Af Amer) > 60 03/19/18 07:00 POC Glucose (mg/dL) 113 mg/dL (65-110) H 03/19/18 04:12 Random Glucose 93 mg/dL (70-110) 03/19/18 07:00 Calcium 9.3 mg/dL (8.4-10.5) 03/19/18 07:00 Phosphorus 3.4 mg/dL (2.5-4.5) 03/19/18 07:00 Magnesium 2.1 mg/dL (1.7-2.2) 03/19/18 07:00 Total Bilirubin 0.9 mg/dL (0.2-1.3) 03/19/18 07:00 AST 22 U/L (14-36) 03/19/18 07:00 ALT 71 U/L (7-56) H 03/19/18 07:00 Alkaline Phosphatase 99 U/L (38-126) 03/19/18 07:00 Total Protein 5.8 g/dL (5.8-8.3) 03/19/18 07:00 Albumin 3.4 g/dL (3.0-4.8) 03/19/18 07:00 Globulin 2.3 gm/dL 03/19/18 07:00 Albumin/Globulin Ratio 1.5 (1.1-1.8) 03/19/18 07:00 - Hospital Course Hospital Course: 72 female with PMH of COPD, CVA 2017, a. fib on eliquis, thyroid ca s/p chemo and radiation 3 yo originally presented to the Emergency department with shortness of breath and cough and subsequently admitted for COPD exacerbation. During hospital course, patient was placed on azithromycin, Vantin, solu-medrol. Patient also continued home pulmicort and brovana. Patient was initially on Xopenex but was changed to Atrovent due to persisting tachycardia. Patient also had EKG done which showed afib, was continued on home eliquis in addition to diltiazem and metoprolol. Patient had transaminitis, which was noted to be elevated from previous admission to the hospital. Abdominal ultrasound showed no acute findings, fatty infiltration of liver. Hepatitis panel was negative. Lipitor was held. Patient to have repeat labs to monitor liver function and resume Lipitor when transaminitis resolves. Patient was stabilized and transferred to TCU due to her deconditioned state. During TCU course, patient continued with physical therapy with improvement of her breathing status and strength. Corticosteroids were tapered. Patient was walked with O2 monitor and O2 sat remained in the high 90s during entire walk. As patient was much improved and able to ambulate without difficulty, she was discharge. Patient was given an rx for Prednisone taper and Pulmicort. Patient will be continued on her home medications. Patient will follow up with her primary doctor upon discharge. Patient acknowledged and agreed to plan. Discharge Exam - Head Exam Head Exam: NORMAL INSPECTION - Eye Exam Eye Exam: EOMI, Normal appearance, PERRL Pupil Exam: NORMAL ACCOMODATION, PERRL - ENT Exam ENT Exam: Normal Exam - Respiratory Exam Respiratory Exam: Wheezes. absent: Accessory Muscle Use, Chest Wall Tenderness, Decreased Breath Sounds, Prolonged Expiratory Phase, Rales, Rhonchi, Respiratory Distress - Cardiovascular Exam Cardiovascular Exam: Irregular Rhythm, +S1, +S2. absent: Bradycardia, Tachycardia, Diastolic murmur, Rubs, Systolic Murmur - GI/Abdominal Exam GI & Abdominal Exam: Soft. absent: Distended, Guarding, Hernia, Rebound, Tenderness - Neurological Exam Neurological exam: Alert, CN II-XII Intact, Oriented x3 - Skin Skin Exam: Dry, Intact, Normal Color, Warm Discharge Plan - Discharge Medications Prescriptions: Budesonide [Pulmicort Flexhaler] 180 mcg IH Q12H #1 aer.[id number] predniSONE [predniSONE Tab] 5 mg PO DAILY #14 tab - Follow Up Plan Condition: GOOD Disposition: HOME/ ROUTINE Instructions: Exacerbation of COPD (DC) Additional Instructions: Please follow up with your primary medical doctor Dr. Thomson within a week. Follow up repeat liver function tests and resume your statin medication when your liver enzymes are within normal ranges. Also resume your other home medications as prescribed. Complete Prednisone taper, 6 days total. 20 mg for 2 days, then 10 mg for 2 days, then 5 mg for 2 days. Return to ED if symptoms return or worsen. Referrals: Zari Valenzuela MD [Primary Care Provider] - <Stacia Escobar - Last Filed: 03/20/18 17:07> Provider - Provider Date of Admission: 03/14/18 16:36 Attending physician: Stacia Escobar MD Primary care physician: Zari Thomson MD Consults: 03/14/18 20:41 Inpatient TOWER SWITCH OPERATOR Core Measures Referral Routine Comment: Physician Instructions: Reason For Exam: EVALUATION Social Work Referral Routine Comment: NEEDS ASSISTANCE AT HOME Physician Instructions: Reason For Exam: EVALUATION Transition In Care/Readmission Reduction Routine Comment: Physician Instructions: Reason For Exam: EVALUATION Hospital Course - Lab Results Lab Results: Most Recent Lab Values WBC 9.5 10^3/uL (4.5-11.0) 03/19/18 07:00 RBC 4.71 10^6/uL (3.5-6.1) 03/19/18 07:00 Hgb 11.8 g/dL (12.0-16.0) L 03/19/18 07:00 Hct 38.9 % (36.0-48.0) 03/19/18 07:00 MCV 82.6 fl (80.0-105.0) 03/19/18 07:00 MCH 25.1 pg (25.0-35.0) 03/19/18 07:00 MCHC 30.3 g/dl (31.0-37.0) L 03/19/18 07:00 RDW 17.9 % (11.5-14.5) H 03/19/18 07:00 Plt Count 268 10^3/uL (120.0-450.0) 03/19/18 07:00 MPV 11.5 fl (7.0-11.0) H 03/19/18 07:00 Gran % 82.3 % (50.0-68.0) H 03/19/18 07:00 Lymph % (Auto) 9.5 % (22.0-35.0) L 03/19/18 07:00 Banks % (Auto) 8.1 % (1.0-6.0) H 03/19/18 07:00 Eos % (Auto) 0.1 % (1.5-5.0) L 03/19/18 07:00 Baso % (Auto) 0.0 % (0.0-3.0) 03/19/18 07:00 Gran # 7.84 (1.4-6.5) H 03/19/18 07:00 Lymph # (Auto) 0.9 (1.2-3.4) L 03/19/18 07:00 Banks # (Auto) 0.8 (0.1-0.6) H 03/19/18 07:00 Eos # (Auto) 0.0 (0.0-0.7) 03/19/18 07:00 Baso # (Auto) 0.00 K/mm3 (0.0-2.0) 03/19/18 07:00 Sodium 139 mmol/L (132-148) 03/19/18 07:00 Potassium 3.5 mmol/L (3.6-5.0) L 03/19/18 07:00 Chloride 101 mmol/L (98-107) 03/19/18 07:00 Carbon Dioxide 35 mmol/L (21-33) H 03/19/18 07:00 Anion Gap 7 (10-20) L 01/12/19 07:00 BUN 21 mg/dL (7-21) 03/19/18 07:00 Creatinine 0.7 mg/dl (0.7-1.2) 03/19/18 07:00 Est GFR ( Amer) > 60 03/19/18 07:00 Est GFR (Non-Af Amer) > 60 03/19/18 07:00 POC Glucose (mg/dL) 113 mg/dL (65-110) H 03/19/18 04:12 Random Glucose 93 mg/dL (70-110) 03/19/18 07:00 Calcium 9.3 mg/dL (8.4-10.5) 03/19/18 07:00 Phosphorus 3.4 mg/dL (2.5-4.5) 03/19/18 07:00 Magnesium 2.1 mg/dL (1.7-2.2) 03/19/18 07:00 Total Bilirubin 0.9 mg/dL (0.2-1.3) 03/19/18 07:00 AST 22 U/L (14-36) 03/19/18 07:00 ALT 71 U/L (7-56) H 03/19/18 07:00 Alkaline Phosphatase 99 U/L (38-126) 03/19/18 07:00 Total Protein 5.8 g/dL (5.8-8.3) 03/19/18 07:00 Albumin 3.4 g/dL (3.0-4.8) 03/19/18 07:00 Globulin 2.3 gm/dL 03/19/18 07:00 Albumin/Globulin Ratio 1.5 (1.1-1.8) 03/19/18 07:00 Attending/Attestation - Attestation I have personally seen and examined this patient.: Yes I have fully participated in the care of the patient.: Yes I have reviewed all pertinent clinical information, including history, physical exam and plan: Yes Notes (Text): 03/20/18 17:04 Medical record note made by the resident after discussion with my direction and input after the patient was personally seen and examined by me. I have reviewed the chart and agree that the record accurately reflects by personal performance of the history, physical exam, data review, and medical decision-making, in the course for the patient. I have also personally directed the plan of care. 72 year old female with past medical history of COPD, CVA 2017, afib on eliquis, thyroid ca s/p chemo and radiation admitted for management of acute COPD exacerbation and cough, She was latter transferred to TCU for rehabilitation. Cough and dyspnea is improved.Patient is ambulatory and is on room air.She will be discharged home on tapering dose of Prednisone. LFT are improving.AST is back to normal.ALT is mildly elevated, will need repeat LFT in 1-2 weeks with PMD Patient will be discharged home and will follow up with PCP in 5 days. Management plan was discussed in detail with patient. Education was provided.
== END 2018-03-20 14:01 | disposition home or self-care (01) | DRG 192 ==
LOC: TRCU 16:36
PROVIDERS: ADMIT Hospitalist; ATTEND Internal Medicine
PROC: F07Z9ZZ Gait Training/Functional Ambulation Treatment (ICD-10-PCS; principal; 2018-03-15)
PROC: F07M6ZZ Therapeutic Exercise Treatment of Musculoskeletal System - Whole Body (ICD-10-PCS; 2018-03-15)
PROC: F08Z2ZZ Grooming/Personal Hygiene Treatment (ICD-10-PCS; 2018-03-15)
PROC: F08Z1ZZ Dressing Techniques Treatment (ICD-10-PCS; 2018-03-15)
PROC: F08Z0ZZ Bathing/Showering Techniques Treatment (ICD-10-PCS; 2018-03-15)
PROC: F08Z4ZZ Home Management Treatment (ICD-10-PCS; 2018-03-15)
DX: J44.1 Chronic obstructive pulmonary disease with (acute) exacerbation (principal); I48.91 Unspecified atrial fibrillation; E03.9 Hypothyroidism, unspecified; Z79.01 Long term (current) use of anticoagulants; Z85.850 Personal history of malignant neoplasm of thyroid; Z86.73 Personal history of transient ischemic attack (TIA), and cerebral infarction without residual deficits; Z87.891 Personal history of nicotine dependence; Z90.49 Acquired absence of other specified parts of digestive tract; Z92.21 Personal history of antineoplastic chemotherapy; Z92.3 Personal history of irradiation